=== PATIENT | male | born 1955 | race Caucasian/White ===

== ENCOUNTER 2016-08-07 14:33 | Inpatient (IN) | payer OTHER ==
[2016-08-07] VITALS (19 sets, daily range): BP systolic 109–250; BP diastolic 38–155
[~2016-08-07] VITALS: Ht 180.3 cm; Wt 89.0 kg
--- NOTE | ~2016-08-07 | P ---
[facility] [place] [address] [place] [address] PROCEDURE REPORT Name: CARLEYDEBORA Room #: 238-P ADM IN M.R.#: [id number] Admission: 08/07/16 Attend Phys: Xavi Stapleton MD Discharge: Date of : 53 Report #: [id number] THIS REPORT FOR: //name// CC: [facility] physician/PCP Xavi Stapleton HISTORY OF PRESENT ILLNESS: The patient is a 60-year-old male with diabetes, coronary artery disease, presenting with fatigue and found to be in complete heart block who had an episode of torsade de pointes secondary to prolonged QT and bradycardia with a long and short pause and an R-on-T phenomenon. His echo shows an EF of 50%. He is here for dual chamber pacemaker implantation. He has been cleared from an infection standpoint. Blood cultures are negative. ANESTHESIA: The patient was already intubated and was on general anesthesia for the procedure. Informed consent was obtained of his brother. We discussed the details of the procedure including the risks, which include but not limited to bleeding, infection, vascular damage, cardiac tamponade and pneumothorax. He understood these risks and was willing for us to implant the device. DESCRIPTION OF PROCEDURE: The patient was brought to the EP laboratory in a fasting and nonsedated state already intubated. He received IV vancomycin for antibiotic prophylaxis and was on additional antibiotics as well. Next, a venogram was performed showing patency of the left axillary vein. I injected 20 mL of lidocaine at the area below the clavicle. Incision was made. A pocket was created over the prepectoral fascia and access was obtained twice the left axillary vein with guidewires noted to be into the right atrium. Next, sheaths were positioned using the modified Seldinger technique and leads were positioned in the right ventricular apex and the right atrial appendage both with adequate pacing and sensing thresholds. The leads were sutured to the prepectoral fascia and then the device was connected. Tug test was performed. The device was placed in the pocket. The pocket was irrigated with vancomycin solution and then closed in 3 layers using 2-0 for the deep layer, 3-0 for the mid layer and 4-0 for the subcuticular layer. Surgical glue was placed at the incision site. Next, the temporary pacing wire was pulled from the right ventricle under fluoroscopy with no interference in with the pacemaker leads. Both the arterial and venous sheaths were also pulled. Hemostasis was obtained. The patient was transferred back to the ICU in stable condition. The implanted pacemaker was a [employer] model #PA7601, serial #[id number]. Atrial lead was a [employer] model #2088TC, 52 cm, serial #[id number], atrial lead 2.4 millivolts, pacing impedance of 448 ohms and the pacing threshold was 1.5 volts at 0.4 milliseconds. RV lead was a [employer] model #2088TC, 58 cm, serial #[id number] with an R-wave of 4.9 millivolts, pacing impedance of 700 ohms and a pacing threshold of 0.5 volts at 0.4 milliseconds. The device was programmed to the DDD 60-130 mode[address] [address] PROCEDURE REPORT Name: DEBORA HOWE Room #: 238-P [facility] IN M.R.#: [id number] Admission: 08/07/16 Attend Phys: Xavi Stapleton MD Discharge: Date of : 53 Report #: [id number] CONCLUSIONS: 1. Successful dual-chamber pacemaker implantation. 2. Satisfactory atrial and ventricular pacing and sensing thresholds. 3. Successful removal of the temporary pacing wire. <ELECTRONICALLY SIGNED> By: Fuad Johnson MD 08/16/16 0853 1401 2220 Fuad Johnson MD /nt
--- NOTE | ~2016-08-07 | HC ---
[facility] [place] [address] [place] [address] CONSULTATION Name: DEBORA HOWE Room #: 238-P [facility] IN M.R.#: [id number] Admission: 08/07/16 Attend Phys: Xavi Stapleton MD Discharge: Date of : 53 Report #: [id number] THIS REPORT FOR: //name// CC: [facility] physician/PCP Xavi Stapleton DATE OF SERVICE: 08/08/2016 REASON FOR CONSULTATION: Cholelithiasis. HISTORY OF PRESENT ILLNESS: This is a 60-year-old male patient, who was seen in the [place] [facility] with weakness and syncope. He had a temperature of 101. He has a known history of diabetes mellitus and is also known to be noncompliant. He has undergone a cardiac stent placement and was told several years ago that he would require coronary artery bypass graft. He has had difficulty with nausea, vomiting and diarrhea as well with an elevated temperature 101.5 degrees. In the Emergency Room, the patient was found to have a contracted gallbladder with gallstones. Radiology was unable to tell whether the gallbladder wall was thickened. The intra and extrahepatic biliary tree appeared otherwise normal. After the patient's admission, the patient was found to have a complete heart block, and he was admitted to the intensive care unit. The patient has been coded 2 to 3 times since his admission. PAST MEDICAL HISTORY AND PAST SURGICAL HISTORY: Significant for noncompliance with diabetes mellitus, hypertension, diabetic neuropathy, osteomyelitis, right foot wound, coronary artery stents. He has undergone tonsillectomy in the past. MEDICATIONS: Please see the electronic medical record for details. ALLERGIES: CIPROFLOXACIN causes hives. FAMILY HISTORY: Reviewed and noncontributory. SOCIAL HISTORY: The patient has a previous heavy alcohol use history. REVIEW OF SYSTEMS: As per history of present illness. Other review of systems is unobtainable, as the patient is now intubated and sedated. PHYSICAL EXAMINATION: VITAL SIGNS: Temperature 98.6, blood pressure 157/71, pulse 50, respirations 16. GENERAL: This is a 60-year-old male patient, who appears older than his stated age. He is intubated and sedated. HEENT: Atraumatic and normocephalic. NECK: Supple, no lymphadenopathy. Trachea is midline. CHEST: Clear bilaterally. [address] [address] CONSULTATION Name: DEBORA HOWE Room #: 238-P [facility] IN M.R.#: [id number] Admission: 08/07/16 Attend Phys: Xavi Stapleton MD Discharge: Date of : 53 Report #: [id number] CARDIOVASCULAR: Sinus bradycardia with evidence for complete heart block on the monitor. ABDOMEN: Soft and rotund. No wincing with exam. No palpable masses, no appreciable hernias, no surgical scars appreciated. GENITOURINARY: Normal external male genitalia. EXTREMITIES: No clubbing or cyanosis. NEUROLOGIC: Unable to assess. PSYCHIATRIC: Unable to assess. SKIN AND INTEGUMENTARY: Warm and dry. LABORATORY DATA: CBC shows a white blood cell count 5.4, hemoglobin 14.4, hematocrit 41.7, platelets 96. Electrolytes show sodium 135, potassium 4.6, chloride 101, CO2 of 25, BUN 19, creatinine 1.1, glucose was 249, total bilirubin is elevated at 2.0, ALT 21, AST 18, alkaline phosphatase 287. RADIOLOGIC STUDIES: CT of the abdomen and pelvis findings are as noted above. Abdominal ultrasound showed an echogenic contracted gallbladder with multiple gallstones and changes consistent with probable cholecystitis. There was no pericholecystic fluid seen. The gallbladder wall was quite difficult to visualize as the gallbladder appeared to b contracted. The extrahepatic common bile duct was mildly prominent 5 mm in diameter. Chest x-ray showed increasing vascular congestion. IMPRESSION AND PLAN: This is a 60-year-old noncompliance male patient with diabetes, and coronary artery disease, who has complete heart block and he was admitted to the intensive care unit. He has been coded multiple times. He may have acute cholecystitis. It is difficult to tell at this point; however, intervention is not warranted unless he is felt to develop and sepsis from this, in which case interventional radiology will be consulted for consideration for cholecystostomy placement. I will follow along with serial abdominal exams as well as labs and x-rays as necessary. The patient's total bilirubin is mildly elevated and if it rises, he may need a PIPIDA scan to rule out biliary obstruction. His biggest issue is his untreated cardiac disease. I sincerely appreciate the opportunity to participate in the care of this patient and will leave further recommendations and orders in the electronic medical record as appropriate. <ELECTRONICALLY SIGNED> By: Antonio Olson MD, FACS 08/09/16 1200 1611 0040 Antonio Olson MD, FACS /nt
--- NOTE | ~2016-08-07 | P ---
[facility] [place] [address] [place] [address] PROCEDURE REPORT Name: DEBORA HOWE Room #: 203-P [facility] IN M.R.#: [id number] Admission: 08/07/16 Attend Phys: Xavi Stapleton MD Discharge: Date of : 53 Report #: [id number] THIS REPORT FOR: //name// CC: [facility] physician/PCP Xavi Stapleton DATE OF SERVICE: 08/30/2016 SURGEON: Antonio Olson M.D. PREOPERATIVE DIAGNOSES: 1. Dysphagia with aspiration. 2. Protein-calorie malnutrition. 3. History of alcoholism. 4. Third degree heart block, status post pacemaker placement. 5. Diabetes mellitus. 6. Medical noncompliance. POSTOPERATIVE DIAGNOSES: 1. Dysphagia with aspiration. 2. Protein-calorie malnutrition. 3. History of alcoholism. 4. Third degree heart block, status post pacemaker placement. 5. Diabetes mellitus. 6. Medical noncompliance. PROCEDURE: EGD with 20-Tongan pull-type. ANESTHESIA: Monitored anesthetic care and local anesthetic. ESTIMATED BLOOD LOSS: 5 mL. SPECIMEN: None. COMPLICATIONS: None appreciated. INDICATIONS FOR PROCEDURE: This is a 60-year-old noncompliant male patient, with a history of diabetes mellitus, and coronary artery disease with complete heart block. He was admitted and coded multiple times and then intubated. He was extubated and then reintubated, and has been since extubated. He appears to be encephalopathic and is slow to advance regarding his swallowing function. He has had dysphagia with aspiration. He presents now for an EGD with PEG placement. DESCRIPTION OF PROCEDURE IN DETAIL: After the benefits and risks of the procedure were explained to the patient and his durable power of personal injury attorney, which [facility] [address] [place] [address] PROCEDURE REPORT Name: DEBORA HOWE Room #: 203-P [facility] IN M.R.#: [id number] Admission: 08/07/16 Attend Phys: Xavi Stapleton MD Discharge: Date of : 53 Report #: [id number] include but are not limited to risks of bleeding, infection, postoperative pain, postoperative expectations, an informed consent was obtained. The patient was identified in the preoperative holding area. He was given IV antibiotics as documented in the chart in line with the SCIP protocol. The patient was then taken to the procedure room, and he was placed in the supine position. Bite block was placed. A time-out was performed to identify the correct patient and procedure. The patient was then given monitored IV sedation. When adequately sedated, the gastroscope was then inserted into the patient's oropharynx and passed down the esophagus into the stomach and beyond the pylorus to the second portion of the duodenum. The scope was then slowly withdrawn. The scope was withdrawn into the antrum, the scope was retroflexed in retrograde view of the cardia was seen. The scope was then straightened and slightly withdrawn. The room lights were dimmed, and the stomach was transilluminated. An appropriate area was chosen for placement of the tube to the left of midline in the upper abdomen. There was good ballotability, seen with the endoscope. The skin was then prepped and draped in the standard sterile fashion. Local anesthetic was infiltrated into the skin and subcutaneous tissue. A small transverse incision was made. A Cook needle with catheter was then advanced directly into the stomach, and the needle was withdrawn. A looped guidewire was then advanced through the catheter. The guidewire was snared with the scope. The guidewire was then withdrawn through the patient's esophagus and oropharynx. The pull-type 20-Tongan PEG tube was then attached to the guidewire coming out of the patient's mouth. The guidewire was used to advance the PEG tube, as it was pulled with some traction from the abdominal side. The PEG tube was brought through the opening and marked at 2.5 cm at the skin level. The outer flange was placed. The tube was then cut to size. A clamp and fitting were then placed. The gastroscope was reinserted into the patient's oropharynx and passed down the esophagus and into the stomach where the inner flange was seen against the anterior body of the stomach, located distally. The tube did not appear to be under undue pressure. The stomach was then decompressed, and the scope was slowly withdrawn. The patient tolerated the procedure well. He was awakened and taken to the recovery room in stable condition with no apparent complications. The patient's tube will be kept to dependent drainage for 24 hours. He will then be resumed on his tube feeds starting at a slow rate and slowly advancing to his goal rate as tolerated. <ELECTRONICALLY SIGNED> By: Antonio Olson MD, FACS 08/30/16 2156 1614 1723 Antonio Olson MD, FACS /nt
--- NOTE | ~2016-08-07 | EEG ---
[facility] [place] [place] [address] ELECTROENCEPHALOGRAM Name: CARLEYDEBORA Room #: 203-P ADM IN M.R.#: [id number] Admission: 08/07/16 Attend Phys: Xavi Stapleton MD Discharge: Date of : 53 Report #: [id number] THIS REPORT FOR: //name// CC: [facility] physician/PCP Xavi Stapleton DATE OF SERVICE: 08/25/2016 This patient is being evaluated for the possibility of encephalopathy. EEG was done by placing the electrodes by standard 10-20 system of electrode placement. Both referential and sequential montages were used for recording. Background activity does go up to about 8-9 Hz and 40 microvolt, but it is intermixed with theta range slowing on both sides. The patient appeared to be asleep during part of this EEG, that is associated with bilateral slowing and vertex sharp waves. Photic stimulation is unremarkable. IMPRESSION: Moderately abnormal EEG because it is disorganized and poorly formed. It is intermixed with theta range slowing. That finding can occur with encephalopathy, effect of psychotropic medication, dementia, etc. Clinical correlation is recommended. Thank you very much for this referral. <ELECTRONICALLY SIGNED> By: Garrett Rios MD 08/28/161941 170 51 Garrett Rios MD /nt
--- NOTE | ~2016-08-07 | HC ---
[facility] [place] [address] [place] [address] CONSULTATION Name: CARLEYDEBORA Room #: 238-P [facility] IN M.R.#: [id number] Admission: 08/07/16 Attend Phys: Xavi Stapleton MD Discharge: Date of : 53 Report #: [id number] THIS REPORT FOR: //name// CC: [facility] physician/PCP Xavi Stapleton PRIMARY CARE PHYSICIAN: Unknown. REFERRING PHYSICIAN: Xavi Stapleton M.D. REASON FOR REFERRAL: Acute respiratory failure following a cardiac arrest. HISTORY OF PRESENT ILLNESS: The patient is a 60-year-old white male who presented to Emergency Room with nausea, vomiting, diarrhea and febrile illness. The patient was admitted for complete heart block, cholecystitis and possible pneumonia. Overnight, the patient became unresponsive, telemetry showed ventricular fibrillation. The patient was subsequently intubated. A pulmonary consultation was requested. The patient has been seen by Cardiology regarding complete heart block. The patient was felt to be hemodynamically stable. Following Emergency Room evaluation, the patient was admitted to the ICU. At around 09:00 p.m., the patient became unresponsive. The patient was found to be in ventricular fibrillation. He was defibrillated once with spontaneous return of circulation and pulse. The patient was found to be in wide complex tachycardia on the monitor. He was subsequently given amiodarone. The patient was not able to follow commands. He was minimally responsive. The patient was subsequently intubated. A 7.5 mm ET tube was utilized. Currently, he is stable, sedated, he is on dopamine. Pulse remains around the 40s. Hemodynamically stable. PAST MEDICAL HISTORY: Notable for diabetes mellitus type 2; hypertension; coronary artery disease, undergone prior stent placement in the past, he is followed by Dr. 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 PAST SURGICAL HISTORY: Status post tonsillectomy. ALLERGIES: To FLUOROQUINOLONE which causes severe hives. HOME MEDICATIONS: Include insulin supplements, Zocor, Januvia, aspirin, Plavix, antiacid, multivitamins, Senokot, Diflucan, Zestril, Colace and fish oil. FAMILY HISTORY: Unknown. [address] [address] CONSULTATION Name: DEBORA HOWE Room #: 238-P [facility] IN ..#: [id number] Admission: 08/07/16 Attend Phys: Xavi Stapleton MD Discharge: Date of : 53 Report #: [id number] SOCIAL HISTORY: The patient apparently lives alone. He has family members out of state. According to the family members, the patient could not afford insurance last couple of years due to Affordable Care Act. As a result, his diabetes has been in under poor control, resulting in chronic wounds involving his lower extremities. There is no history of tobacco or alcohol use. REVIEW OF SYSTEMS: Deferred as the patient is intubated. PHYSICAL EXAMINATION: GENERAL: He is sedated. VITAL SIGNS: Temperature is 99.5 degrees Fahrenheit, pulse is 48, respiratory rate is 24, blood pressure 169/54 mmHg and saturations 100%. HEENT: Normocephalic and atraumatic. NECK: Supple, without lymphadenopathy or thyromegaly. CHEST: Breath sounds are good. Mild coarse breath sounds bilaterally. No wheezes. CARDIOVASCULAR: Normal S1 and S2. There are no murmurs or gallop. There is no JVD. There is no carotid bruit. Pulses are 2+/4+ bilaterally. ABDOMEN: Soft and nontender. No organomegaly or masses felt. GENITOURINARY: Deferred. RECTAL: Deferred. EXTREMITIES: Noted for no cyanosis or clubbing but remarkable stasis dermatitis changes involving the lower extremities. DIAGNOSTIC DATA: Portable chest x-ray post-intubation shows ET tube in the appropriate position, nasogastric tube is also in appropriate position. Mild vascular congestion is noted bilaterally. No consolidation on bronchogram noted. CT abdomen and pelvis shows the presence of gall stones; otherwise, no acute findings. Arterial ultrasound of the lower extremities was unremarkable. LABORATORY DATA: Lipase was normal. Sodium 137, potassium 4.5, chloride 103, CO2 is 23, BUN is 25 and creatinine is 1.6, earlier it was 1.1. Glucose was 222. Liver function test is grossly unremarkable. WBC 10,500 without bandemia. Platelets are mildly low at 96,000 and albumin 3.5. Arterial blood gas following intubation revealed pH 7.4, pCO2 of 33 and pO2 of 299 on FiO2 of 60%. IMPRESSION: 1. Acute hypoxic respiratory failure in this 60-year-old white male with witnessed cardiac arrest. 2. Witnessed cardiac arrest with ventricular fibrillation, status post cardioversion. 3. Complete heart block. Heart rate in the low 50s to 40s. 4. Coronary artery disease with prior stent placement. [facility] [address] [place] [address] CONSULTATION Name: DEBORA HOWE Room #: 238-P ADM IN [place]#: [id number] Admission: 08/07/16 Attend Phys: Xavi Stapleton MD Discharge: Date of : 53 Report #: [id number] 5. Diabetes mellitus type 2. 6. Hypertension. 7. Chronic wounds involving his right foot due to presumed peripheral vascular disease related to his diabetes mellitus. The patient is suspected to have severe peripheral vascular disease. 8. Cholelithiasis, possible cholecystitis. Surgery has been consulted. 9. Chest x-ray suggests atelectasis, vascular congestion, but no obvious consolidation on air bronchogram. Possible pneumonia. RECOMMENDATIONS: We will continue mechanical ventilation, wean when medically stable. Broad-spectrum antibiotics to treat for presumed cholecystitis. My suspicions for pneumonia are low, but we will obtain sputum for Gram stain and culture sensitivity. The patient has been seen by Cardiology because of his complete heart block, cardiac arrest. DVT and GI prophylaxis will be addressed. Thank you for the consultation. <ELECTRONICALLY SIGNED> By: Malachi Glover MD 08/11/16 1351 1137 2311 Malachi Glover MD /nt
--- NOTE | ~2016-08-07 | HC ---
[facility] [place] [address] CONSULTATION Name: DEBORA HOWE Room #: 238-P ADM IN .R.#: [id number] Admission: 08/07/16 Attend Phys: Xavi Stapleton MD Discharge: Date of : 54 Report #: [id number] THIS REPORT FOR: //name// CC: DHARMESH physician/PCP Xavi Stapleton DATE OF SERVICE: 08/10/2016 REASON FOR CONSULTATION: Acute kidney injury. HISTORY OF PRESENT ILLNESS: This is a 60-year-old male who presented 3 days ago through the Emergency Room. He came in feeling weak. He had been having nausea, vomiting, diarrhea and a fever to 101.5. Multiple things have happened since that time. He was noted to be in third-degree heart block. At that time, he had a BUN of 19 and a creatinine of 1.1. He did have a white count of 5.1. He is a longstanding diabetic, he degraded into a worsening heart rhythm with V-fib. He underwent defibrillation, he received some additional medications. He remains in the ICU. He had a temporary pacemaker placed. He has also had more problems with a right foot wound, which has been infected. He has been started on broad spectrum antibiotics. He is growing up multiple organisms from that right foot wound. During all this time; again, he had a creatinine of 1.1 on admission, but the following day it was up to 1.6, then 2.0 yesterday and 2.2 today. We are asked to see him today. Potassium now is 4.1, bicarbonate 19. He had a urinalysis from admission showing specific gravity of 1.015, pH of 5.5, 1+ protein, 3+ blood with 11-20 red cells. I had also noted the patient had a CT scan of the abdomen on admission. It showed normal appearing kidneys. No evidence of obstruction or hydronephrosis. PAST MEDICAL HISTORY: Longstanding diabetes mellitus. Review of his admission notes indicates that the patient has been generally noncompliant with medications. He has not taken much in meds for his diabetes for 10 years. It is quite obvious in looking at him he had not taken care of much of anything over that period of time. MEDICATIONS: At this time includes some half normal saline. He is on vancomycin as well as Zosyn for his foot infection. He has gotten some heparin. He is on some insulin. Otherwise, p.r.n. medications. He is also on some pantoprazole. ALLERGIES: Listed to CIPRO. FAMILY HISTORY: Unavailable. SOCIAL HISTORY: The patient lives in an address in [place], [place]. He is . [facility] [address] [place] [address] CONSULTATION Name: CARLEYDEBORA Room #: 238-P [facility] [place] M.R.#: [id number] Admission: 08/07/16 Attend Phys: Xavi Stapleton MD Discharge: Date of : 54 Report #: [id number] REVIEW OF SYSTEMS: Unavailable from the patient. In talking to the ICU nurse, they had attempted to do some ventilator weaning, but he became very unstable from a heart rate and heart rhythm standpoint once that started. He remains on the vent currently. He has been moving extremities. PHYSICAL EXAMINATION: GENERAL: Chronically ill-appearing male seen in the Intensive Care Unit. VITAL SIGNS: Most recent blood pressure 114/52; heart rate is 59, it was a sinus ham, not currently paced; temperature 35.6. HEENT: Shows pupils are 3 mm and reactive. Sclerae are nonicteric. He is orally intubated. NECK: Supple. No JVD. CHEST: Shows coarse breath sounds bilaterally. HEART: Has a regular bradycardia. ABDOMEN: He has a few bowel sounds present; it is soft and nontender at this time. I cannot palpate organomegaly or masses. EXTREMITIES: Show a wrapped right foot. This was recently re-wrapped. I did not unwrap it to look at the right foot ulcer. Left foot shows diminished pedal pulses. LABORATORY DATA: Sodium 141, potassium 4.1, chloride 109, bicarbonate 19, BUN 27, creatinine 2.2, calcium 8.1. Total protein 5.4, albumin 1.8. AST 23, ALT 27. White count 3.6, hemoglobin 11.9, hematocrit 35.0 and platelets 45,000. ASSESSMENT: 1. A 60-year-old male, 3 days post ventricular fibrillation arrest. Hemodynamically, he still has is heart block, he has temporary pacer in place. They are awaiting eventual clearance from an infection standpoint to place a permanent pacemaker. He was on some pressors but is off those at this time. He is getting some IV fluids. Hemodynamically, still somewhat unstable. 2. Acute kidney injury. He has gone from basically a normal creatinine level to his current creatinine over 3 days. He had two events on arrival that could have been contributing. He certainly has underlying diabetes and he did have mild proteinuria. He had a ventricular fibrillation arrest and so had instability related to that. In addition, he received IV contrast for an admission CT scan. Hence, he could have some contrast nephrotoxicity. Nevertheless, he is making urine at this point. Rise of creatinine is slow. Electrolytes are acceptable. I expect this will turnaround. Again, he was unobstructed on his admission CT. Someone had ordered an renal ultrasound but that is not needed at this point as they had the CT just three days ago. At this point, he needs some continued IV fluids. At some time, I expect his renal function will improve. 3. Third-degree heart block, awaiting permanent pacemaker. 4. Respiratory failure on the vent with poor weaning earlier today. 5. Longstanding diabetes with poor management/control. [facility] [address] [place] [address] CONSULTATION Name: DEBORA HOWE Room #: 238-P [facility] [place] .R.#: [id number] Admission: 08/07/16 Attend Phys: Xavi Stapleton MD Discharge: Date of : 54 Report #: [id number] 6. Diabetic foot wound, on 2 different antibiotics. PLAN: 1. Continue current IV fluids. 2. We will cancel the renal ultrasound. 3. Repeat labs in the morning. 4. Check fractional excretion of sodium as that would make a difference if that is still low. 5. We will follow along the care of this patient. <ELECTRONICALLY SIGNED> By: Herberth Dudley MD 08/11/16 1932 1136 36 Herberth Dudley MD /nt
--- NOTE | ~2016-08-07 | HC ---
[facility] [place] [address] CONSULTATION Name: CARLEYDEBORA Room #: 238-P [facility] IN M.R.#: [id number] Admission: 08/07/16 Attend Phys: Xavi Stapleton MD Discharge: Date of : 54 Report #: [id number] THIS REPORT FOR: //name// CC: DHARMESH physician/PCP Xavi Stapleton REASON FOR CONSULTATION: Heart block. HISTORY OF PRESENT ILLNESS: The patient is a 60-year-old with known coronary artery disease status post multiple stents as well as diabetes, peripheral vascular disease who has been experiencing increasing fatigue, nausea, vomiting, was brought to the emergency room. The patient denies any problems with any chest pain or chest tightness. 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 He denies any PND or orthopnea. He denies presyncope or syncope. PAST MEDICAL HISTORY: 1. CAD. 2. Diabetes. 3. Hypertension. 4. Right foot wound in the past with MRSA. The wound VAC was placed there before prior PICC line. SOCIAL HISTORY: He does not smoke. FAMILY HISTORY: Noncontributory. ALLERGIES: CIPRO. MEDICATIONS: Reviewed and include aspirin, Plavix, and lisinopril. Not on any AV alden blocking agents. PHYSICAL EXAMINATION: VITAL SIGNS: Temperature is 38.6, pulse 45, respirations 14, blood pressure 160/40, sats are 96%. GENERAL: He is in no acute distress. He is disheveled and smells like urine. HEENT: Oropharynx is clear. NECK: Supple, with no thyromegaly. HEART: Bradycardic, but regular. There are no murmurs, rubs, or gallops. LUNGS: Clear to auscultation bilaterally. ABDOMEN: Soft, nontender, nondistended, no hepatosplenomegaly. EXTREMITIES: There is no clubbing or cyanosis. There is some edema in the lower extremities and some chronic venous changes. LABORATORY DATA: His white count is 5.4. His hemoglobin is 14.4, his platelets are 96. His sodium is 135, potassium is 4.6, BUN 19, creatinine 1.8, lactate 1.9. Total bilirubin, direct bilirubin slightly elevated. CT scan of the abdomen shows possible gallbladder issues, but otherwise nothing remarkable. [address] [address] CONSULTATION Name: DEBORA HOWE Room #: 238-P [facility] IN .R.#: [id number] Admission: 08/07/16 Attend Phys: Xavi Stapleton MD Discharge: Date of : 54 Report #: [id number] His EKG 12-lead showed heart block. Telemetry, currently he shows 2:1 heart block. He has a left bundle branch block. ASSESSMENT: In summary, the patient is a 60-year-old with known coronary artery disease, diabetes, presents with fatigue, found to be febrile and in complete heart block. He is hemodynamically stable. Recommend watching in the ICU or the CCU, either will be okay. Recommend that he be evaluated by the Infectious Disease Service before I can put a pacemaker in the patient. We will need an echo on Tuesday. We will follow. <ELECTRONICALLY SIGNED> By: Fuad Johnson MD 08/16/16 0855 1718 0115 Fuad Johnson MD /nt
--- NOTE | ~2016-08-07 | EKG ---
[address] [employer] [place] [address] ELECTROCARDIOGRAM REPORT Name: DEBORA HOWE Room #: 238-P ADM IN M.R.#: [id number] Admission: 08/07/16 Attend Phys: Xavi Stapleton MD Discharge: Date of : 54 Report #: [id number] THIS REPORT FOR: //name// [facility] Test Date: 2016-08-14 Test Time: 22:02:19 Pat Name: DEBORA HOWE Department: Room: 238 P Gender: M Junction Maker: jreif : 1955 Requested By: Xavi Stapleton Order Number: [id number] MD: Fuad Johnson Measurements Intervals [place] Rate: 88 P: 64 [place]: 198 QRS: -44 QRSD: 188 T: 112 QT: 465 QTc: 563 Interpretive Statements Sinus rhythm Left bundle branch block Compared to ECG 08/14/2016 07:20:01 Left bundle-branch block now present Ventricular-paced complex(es) or rhythm no longer present Atrial-sensed ventricular-paced complex(es) or rhythm no longer present Electronically Signed On 08-16-2016 14:30:46 CDT by Fuad Johnson [email or web address] <ELECTRONICALLY SIGNED> By: Fuad Johnson MD 08/16/16 1430 01 01 Fuad Johnson MD /EPI
--- NOTE | ~2016-08-07 | HC ---
[facility] [place] [address] CONSULTATION Name: CARLEYDEBORA Room #: 203-P [facility] IN M.R.#: [id number] Admission: 08/07/16 Attend Phys: Xavi Stapleton MD Discharge: 09/03/16 Date of : 54 Report #: [id number] THIS REPORT FOR: //name// CC: DHARMESH physician/PCP Xavi Stapleton DATE OF SERVICE: 08/25/2016 DATE OF SERVICE: 08/25/2016 HISTORY OF PRESENT ILLNESS: The patient is a 60-year-old white male originally admitted with weakness and fever. He was noted to have non-ST elevation myocardial infarction, coronary artery disease, had a cardiac arrest with complete heart block and underwent pacemaker placement. His course has been complicated by acute renal insufficiency. He has had toxic metabolic encephalopathy. He had tijww-gm-sjswcak respiratory failure. He also was cholecystitis. He is on Zosyn with no surgery recommended at this time. He is noted to have profound weakness with question regarding critical illness myopathy. Nutrition has been an issue and is currently n.p.o. with Dobhoff feedings tube. We are seeing him in rehabilitation medicine consultation. PAST MEDICAL HISTORY: Includes diabetes mellitus, noncompliant with medications and had not taken his diabetic medications since 2007. History of hypertension and has had 7 stents placed. MEDICATIONS: Please see the full medication listing. SOCIAL HISTORY: Lives alone in an apartment, does some security work, was premorbidly independent without gait aids. There is a brother, who visited from [place], but apparently has not been closely involved with the patient over the last four years or so. The patient apparently was living "hand to mouth." There was a mother that is involved some, although she apparently has some dementia and lives in an assisted living facility in [place]. REVIEW OF SYSTEMS: Limited with his somnolence. PHYSICAL EXAMINATION: GENERAL: A 60-year-old white male, appeared quite somnolent. He will open his eyes for me, but I could not get him to verbalize. He has the Dobhoff feeding tube in place. He is overweight. He appears to have significant weakness of both upper and lower extremities, although again it was difficult for me to actually get him to become alert enough to even try to test for volitional strength. Tone appeared to be overall decreased both upper and lower extremities. Functionally, he has been maximum assistance for basic bed mobility. [address] [address] CONSULTATION Name: DEBORA HOWE Room #: 203-P [facility] IN .R.#: [id number] Admission: 08/07/16 Attend Phys: Xavi Stapleton MD Discharge: 09/03/16 Date of : 53 Report #: [id number] ASSESSMENT: A 60-year-old white male with the following problem list: 1. Toxic metabolic encephalopathy. 2. Apparent critical illness myopathy. Appears to have profound weakness of both upper and lower extremities, although it is difficult for me to assess volitionally, as he is quite somnolent this morning. 3. Severe dysphagia n.p.o. with Dobhoff. 4. Non-ST elevation myocardial infarction with cardiac arrest and complete heart block status post pacemaker. 5. Acute renal insufficiency. 6. Acute respiratory failure, extubated on 08/22/2016. 7. Peripheral vascular disease. 8. Thrombocytopenia. 9. Diabetes mellitus with foot infection, on Zosyn, prior history of noncompliance. 10. Cholecystitis. No plans for intervention at this time. PLAN: The patient does not meet criteria for an acute [address] [place] [address] inpatient rehabilitation stay. He is very low level. Would consider long-term acute care options at this point. ADDENDUM: Note that the patient has been coded multiple times. He certainly may have a component of hypoxic encephalopathy along with toxic metabolic encephalopathy. <ELECTRONICALLY SIGNED> By: Jack Albrecht MD 09/07/16 1518 1039 1328 Jack Albrecht MD /nt
--- NOTE | ~2016-08-07 | EKG ---
[place] [address] [facility] [address] ELECTROCARDIOGRAM REPORT Name: CARLEYDEBORA Room #: 238-P ADM IN M.R.#: [id number] Admission: 08/07/16 Attend Phys: Xavi Stapleton MD Discharge: Date of : 54 Report #: [id number] THIS REPORT FOR: //name// [facility] Test Date: 2016-08-14 Test Time: 07:20:01 Pat Name: DEBORA HOWE Department: Room: 238 P Gender: M Incising Machine Operator: NAYLA : 1955 Requested By: Fuad Johnson Order Number: [id number] MD: Brandon Martinez Measurements Intervals [place] Rate: 72 P: 41 SD: 212 QRS: -48 QRSD: 182 T: 122 QT: 500 QTc: 548 Interpretive Statements Atrial-sensed ventricular-paced rhythm No further analysis attempted due to paced rhythm Baseline wander in lead(s) I,II Compared to ECG 08/07/2016 21:15:26 ventricular pacing has replaced complete heart block Electronically Signed On 08-15-2016 11:38:06 CDT by Brandon Martinez [email or web address] <ELECTRONICALLY SIGNED> By: Brandon Martinez MD, [facility] 08/15/16 1138 0720 Brandon Martinez MD, [facility] /EPI
--- NOTE | ~2016-08-07 | EKG ---
[address] [address] ELECTROCARDIOGRAM REPORT Name: CARLEYDEBORA Room #: 238-P ADM IN M.R.#: [id number] Admission: 08/07/16 Attend Phys: Xavi Stapleton MD Discharge: Date of : 53 Report #: [id number] THIS REPORT FOR: //name// [facility] Test Date: 2016-08-07 Test Time: 14:47:28 Pat Name: DEBORA HOWE Department: Room: 238 P Gender: M Mine Car Dispatcher: Dmitry MEDRANO : 1955 Requested By: Mary Jane Land Order Number: [id number] MD: Fuad Johnson Measurements Intervals [place] Rate: 47 P: 0 ID: QRS: -3 QRSD: 155 T: 122 QT: 621 QTc: 550 Interpretive Statements Complete AV block with wide QRS complex Left bundle branch block No previous ECG available for comparison Electronically Signed On 08-08-2016 20:04:06 CDT by Fuad Johnson [email or web address] <ELECTRONICALLY SIGNED> By: Fuad Johnson MD 08/08/162003 1447 144 Fuad Johnson MD /MARK
--- NOTE | ~2016-08-07 | HC ---
[facility] [place] [address] CONSULTATION Name: CARLEYDEBORA Room #: 238-P [facility] IN .R.#: [id number] Admission: 08/07/16 Attend Phys: Xavi Stapleton MD Discharge: Date of : 53 Report #: [id number] THIS REPORT FOR: //name// CC: DHARMESH physician/PCP Xavi Stapleton DATE OF SERVICE: 08/11/2016 WOUND CARE CONSULTATION PERSONAL PHYSICIAN: Dr. Stapleton. CHIEF COMPLAINT: Right diabetic foot ulcer. HISTORY OF PRESENT ILLNESS: This is a 60-year-old white male who is currently intubated and sedated in the ICU status post complete heart block followed by cardiac arrest with ventricular fibrillation and resuscitation. On admission, the patient was found to have an ulceration on his right plantar foot of unknown etiology or time frame. The patient once again is intubated and sedated and is unable to give any history. Family members are at the bedside. They state that they are not very close to this patient and did not know anything about any ulcerations on his foot and admit to the fact that the patient is a very private person and has fairly poor self hygiene. I have been asked to assist in the care of the plantar foot ulcer at this time. It is unclear whether the patient has ever had any other ulcerations in the past. PAST MEDICAL HISTORY: Significant for insulin-dependent diabetes which, according to the staff and family members, the patient has not been on any medicines for over 10 years. History of coronary artery disease with multiple cardiac stents placed in the past. History of diabetic neuropathy. CURRENT MEDICATIONS: Multiple. I reviewed the patient's medication list. DRUG ALLERGIES: CIPRO. SOCIAL HISTORY: The patient supposedly lived independently and alone up until the recent hospital visit. FAMILY HISTORY: Unobtainable because the patient is intubated and sedated. REVIEW OF SYSTEMS: Unobtainable because the patient is intubated and sedated. PHYSICAL EXAMINATION: VITAL SIGNS: Stable. The patient is afebrile. GENERAL: This is an intubated and sedated white male who is in no obvious distress. [facility] [address] [place] [address] CONSULTATION Name: DEBORA HOWE Room #: 238-P [facility] IN M.R.#: [id number] Admission: 08/07/16 Attend Phys: Xavi Stapleton MD Discharge: Date of : 53 Report #: [id number] HEENT: Normocephalic, atraumatic. Mucous membranes are dry. Oral endotracheal tube is in place. Eyes are closed. NECK: Shows no obvious JVD, otherwise supple. LUNGS: Clear. HEART: Regular. ABDOMEN: Soft, nontender. EXTREMITIES: The patient will move all extremities spontaneously. There is a trace to 1+ edema in bilateral lower extremities. There is significant hyperkeratosis on the right lower extremity and foot and some on the left. On the right plantar foot, over the first metatarsal head, is an open ulceration with purulent drainage that probes to bone. The drainage itself is foul smelling. It does not appear to be tender. However, once again, the patient is a sedated. The undermining is approximately 1 cm circumferentially. Please see the wound care nurses' notes for actual dimensions. The rest of the foot is not necessarily swollen or red. Evaluation of bilateral heels are intact. Left foot has no associated open ulcerations. LABORATORY DATA: White count 3.8, hemoglobin 11.2 and platelet count is markedly low at 46,000. Albumin also low at 1.8. C-reactive protein was elevated at 32.3. Plain film x-ray of the right foot shows no obvious signs of osteomyelitis. WOUND CARE COURSE: I spoke with the family at the bedside and stated that in the next few days I would like to do a debridement of the foot. However, given his platelet count being so low, I would prefer to hold off at this time, given the risk of bleeding. At this time, we will go ahead and start packing the ulceration of the plantar foot with Aquacel AG daily. IMPRESSION: 1. Chronic ulceration, right first metatarsal head plantar aspect, with fat layer exposed and concerns for underlying osteomyelitis. 2. Diabetes mellitus, poorly controlled. 3. Protein-calorie malnutrition - severe with albumin at 1.8. 4. Coronary artery disease, status post cardiac arrest with resuscitation. 5. Respiratory failure, status post cardiac arrest, currently on a ventilator. 6. Generalized debility. PLAN: Listed as above, with the Aquacel AG packing. I have also spoken to the family about performing an MRI of the foot at some point in time at this hospital once the patient is more stable. We will continue to follow. [address] [address] CONSULTATION Name: DEBORA HOWE Room #: 238-P ADM IN M.R.#: [id number] Admission: 08/07/16 Attend Phys: Xavi Stapleton MD Discharge: Date of : 53 Report #: [id number] I appreciate the ability to consult this patient. <ELECTRONICALLY SIGNED> By: Jalil Her MD 08/16/16 1022 0912 1135 Jalil Her MD /nt
--- NOTE | ~2016-08-07 | S ---
[facility] [place] [address] SURGICAL PATH RPT PROCEDURE Name: DEBORA HOWE Room #: 238-P ADM IN M.R.#: [id number] Admission: 08/07/16 Date of : 53 Discharge: Report #: [id number] Path Case #: [id number] PATHOLOGY REPORT COLLECTION DATE: 08/10/2016 RECEIVED DATE: 08/11/2016 SUBMITTING PHYS: Dr. Dulce Maria Weems OTHER PHYS: Dr. Mary Jane Hurley SPECIMEN(S) RECEIVED: A.Peripheral smear * * * * * * * * * * * * FINAL DIAGNOSIS: Peripheral blood smear: - Pancytopenia including mild leukopenia / lymphopenia, mild normocytic anemia, and moderate to severe thrombocytopenia. (see comment) COMMENT: Overall, the peripheral blood has pancytopenia including mild leukopenia / lymphopenia, mild normocytic anemia, and moderate to severe thrombocytopenia. The etiology of the findings is unclear based entirely on slide review. Potential causes of pancytopenia include infections, drug reactions, and primary bone marrow disorders. Potential causes of normocytic anemia include anemia of chronic disease, treated and/or compensated vitamin and mineral deficiencies, acute blood loss, and dilutional. Potential causes of thrombocytopenia include immune and non-immune platelet destruction, drug and/or toxic exposures, infections, dilutional, and primary bone marrow disorders. Correlation with clinical history and additional laboratory data is recommended. (CLW:mgr; d/t: 08/11/16) PATHOLOGIST: Roxann Pena M.D. REPORT ELECTRONICALLY SIGNED BY: Roxann Pena M.D. DATE/TIME: 08/11/2016 22:00 * * * * * * * * * * * * [address] [address] SURGICAL PATH RPT PROCEDURE Name: DEBORA HOWE Room #: 238-P [facility] IN [facility]#: [id number] Admission: 08/07/16 Date of : 53 Discharge: Report #: [id number] Path Case #: [id number] MICROSCOPIC DESCRIPTION: CBC Data (08/10/16): WBC 3,600 /uL, RBC 3.98, hemoglobin 11.9 g/dL, hematocrit 35.0%, MCV 88.0 fL, MCH 29.9 pg, MCHC 34.0 g/dL, RDW 14.4%, and platelet count 45,000 /uL. Automated white blood cell differential: 69.6% segs, 15.1% lymphs, 11.9% monos, 2.5% eos, and 0.9% basos. Peripheral Blood Smear: Cytomorphological examination of the Mancilla's stained peripheral blood smear confirms the provided data. Red blood cells show mild normocytic anemia with no significant anisopoikilocytosis. White blood cells are mildly decreased in number. They are predominantly segmented neutrophils and are without significant dyspoiesis or significant left shift. There is a mild lymphopenia. The lymphocytes are predominantly small, round, and mature appearing with condensed chromatin and scant cytoplasm with admixed large granular lymphocytes. On scanning, no markedly atypical lymphoid cells are seen. Monocytes are mature. Platelets are moderate to markedly decreased in number and mainly normal in morphology with rare larger platelets noted. CLINICAL HISTORY: 60 year-old man with pancytopenia. Morphologic review of the peripheral blood smear is requested by the patient's physician. INITIAL CPT CODE(S): A; [place] Professional services performed by [employer] at [facility] [address], [place] [address] Technical services performed by [employer] at [address] [place] [address], [address], [place] [address]. [facility] [address] [place] [address] PHONE: [phone] DIRECTOR: Andrae Danielle M.D. * * * END OF REPORT * * *
--- NOTE | ~2016-08-07 | CATHLAB ---
[facility] [place] [address] INVASIVE PROCEDURE REPORT Name: DEBORA HOWE Room #: 238-P ADM IN M.R.#: [id number] Admission: 08/07/16 Attend Phys: Saba Orozco Discharge: Date of : 53 Date of Service: 08/09/16 0849 Report #: [id number] THIS REPORT FOR: //name// CC: DHARMESH physician/PCP Xavi Stapleton PROCEDURES: Left ventriculography, coronary angiography, selective renal angiography and temporary pacemaker placement. DESCRIPTION OF PROCEDURE: The patient brought to the catheterization lab on a ventilator and not responsive and sedated on propofol drip. Right groin prepped and draped in sterile manner. A 6-Belarusian sheath, right femoral artery, 5-Belarusian in the right femoral vein. Initially, straight pigtail catheter performed a TIDWELL ventriculogram. LV function mildly reduced with an anterior apical hypokinesis, EF 40% to 45%. FL4 left coronary system, FR4 right coronary system. Moderate disease in the LAD with significant proximal calcification distally, higher grade 60% to 70%. Prior stents have with moderate restenosis throughout, 40% and 50%. Circumflex marginal with a proximal eccentric lesion, 75% to 80% proximal to prior stents and then a distal lesion of 70%, nondominant. Possible place for intervention in the proximal circumflex at a later date. The right with the JR4 was moderately diseased throughout and with a bifurcation lesion of 60% to 70% with mild disease in the PDA and JEAN CLAUDE. No clear culprit for intervention here based on this story. I possibly would consider intervention of this proximal circumflex at later date. HEMODYNAMICS: Aortic 152/55, LV 160/17. IMPRESSION: 1. Left main, free of disease. 2. Left anterior descending with moderate disease throughout with in-stent restenosis in the mid vessel of 40% and a distal lesion of 70% diffusely diseased vessel. 3. Circumflex marginal nondominant. Mid vessel stents were patent with mild restenosis. Proximal vessel has 75% to 80% eccentric lesion with a high-grade lesion distal and then OM branch; not clear if this is the culprit here. We will continue to watch this area, consider proximal circumflex stent at later date. 4. Moderate disease throughout the right previous stents, mildly restenosed and a bifurcation lesion of 60% to 70%. 5. Successful placement of temporary pacemaker through the right femoral vein, MA of 5 with a rate of 60s, intermittently paced in backup mode. 6. Bilateral single renal arteries have mild disease. [facility] [address] [place] [address] INVASIVE PROCEDURE REPORT Name: DEBORA HOWE Room #: 238-P ADM IN M.R.#: [id number] Admission: 08/07/16 Attend Phys: Saba Orozco Discharge: Date of : 53 Date of Service: 08/09/16 0849 Report #: [id number] RECOMMENDATIONS: Total contrast utilized 60 ml. We will continue hydration a.m. lab. <ELECTRONICALLY SIGNED> By: Wesly Jama MD, FACC 08/10/16 0820 0849 1212 Wesly Jama MD, FACC /nt
--- NOTE | ~2016-08-07 | HC ---
[facility] [place] [address] CONSULTATION Name: CARLEYDEBORA Room #: 238-P [facility] IN M.R.#: [id number] Admission: 08/07/16 Attend Phys: Xavi Stapleton MD Discharge: Date of : 53 Report #: [id number] THIS REPORT FOR: //name// CC: FAM physician/PCP Xavi Stapleton DATE OF SERVICE: 08/12/2016 PERSONAL PHYSICIAN: Xavi Stapleton MD CHIEF COMPLAINT: Necrotic right foot ulceration. PREPROCEDURE DIAGNOSES: 1. Chronic ulceration, right foot, with fat layer exposed with necrosis. 2. Diabetes mellitus, controlled. 3. Coronary artery disease. POSTPROCEDURE DIAGNOSES: 1. Chronic ulceration, right foot, with fat layer exposed with necrosis. 2. Diabetes mellitus, controlled. 3. Coronary artery disease. DESCRIPTION OF PROCEDURE: After timeout was taken, verbal consent was obtained from his caregivers and from his DPOA, the patient had excisional debridement down to and including subcutaneous tissue with 100% of the ulceration debrided for a total of less than 20 square cm totally debrided. Lidocaine 1% with epinephrine was used prior to the procedure for anesthesia. Scalpel and forceps were used for further debridement. Bleeding was minimal, easily controlled with pressure. Postdebridement measurements were 1.7 x 2.5 x 0.5 cm, the ulceration was packed with Maxorb Ag after the procedure. Kerlix was placed over the foot itself. The patient tolerated the procedure well. Questions were answered from the family. Please note there were no signs of any actual purulent drainage, there was no actual bony involvement that I can appreciate. There is no bone exposed once the ulceration was debrided. This once again was an excisional debridement down to and including subcutaneous tissue for less than 20 square cm totally debrided. <ELECTRONICALLY SIGNED> By: Jalil Her MD 08/16/16 1022 0826 2048 Jalil Her MD /nt
--- NOTE | ~2016-08-07 | 2DMMODE ---
[facility] [place] [address] 2 D/M-MODE ECHOCARDIOGRAM Name: CARLEYDEBORA Room #: 238-P [facility] IN .R.#: [id number] Admission: 08/07/16 Attend Phys: Saba Orozco Discharge: Date of : 53 Date of Service: 08/09/16 1710 Report #: [id number] THIS REPORT FOR: //name// APPROVED REPORT Study performed: 08/09/2016 13:56:04 EXAM: Comprehensive 2D, Doppler, and color-flow Echocardiogram Patient Location: Bedside/Room 238 Blood Pressure: 147/52 mmHg HR: 53 bpm Rhythm: Irregular Other Information Study Quality: Adequate Technically limited study due to arrhythmia, no mobility of patient, on vent in ICU. Indications Cardiac arrest, complete heart block, temporary pacemaker. Hx: CAD, stents, HTN, DM 2D Dimensions RVDd: 42.04 mm LVEF(%): 50.06 (>50%) IVSd: 10.59 (7-11mm) LVOT Diam: 26.17 (18-24mm) LVDd: 56.92 mm PWd: 9.68 (7-11mm) LVDs: 42.25 (25-40mm) Aortic Root: 37.02 mm Alvares's LVEF: 50.06 % Volumes Left Atrial Volume (Systole) Single Plane 4CH: 72.73 mL Single Plane 2CH: 129.47 mL Aortic Valve AoV Peak Jorge.: 1.31 m/s AO Peak Gr.: 6.90 mmHg LV Max P.70 mmHg LV Max: 0.82 m/s Mitral Valve MV PHT: 81.09 ms [facility] [address] [place] [address] 2 D/M-MODE ECHOCARDIOGRAM Name: CARLEYDEBORA Room #: 238-P [facility] IN [facility]#: [id number] Admission: 08/07/16 Attend Phys: Saba Orozco Discharge: Date of : 53 Date of Service: 08/09/16 1710 Report #: [id number] MV E Max Jorge.: 0.56 m/s E/A Ratio: 0.6 MV A Jorge.: 0.92 m/s MV Decel. Time: 279.63 ms Pulmonary Valve PV Peak Jorge.: 1.05 m/s PV Peak Gr.: 4.37 mmHg Tricuspid Valve RAP Estimate: 10.00 mmHg Left Ventricle Left ventricle is borderline dilated. There is normal left ventricular wall thickness. Left ventricular systolic function is borderline. LVEF is 50%. Grade I - abnormal relaxation pattern. Right Ventricle Right ventricle is not well visualized. Atria Left atrium is dilated. The right atrium size is normal. Aortic Valve The Aortic valve is sclerotic. Trace to mild aortic regurgitation. There is no aortic valvular stenosis. Mitral Valve The mitral valve is normal in structure. Trace to mild mitral regurgitation. Tricuspid Valve The tricuspid valve is normal in structure. There is no tricuspid valve regurgitation noted. Pulmonic Valve The pulmonary valve is normal in structure. Trace pulmonic regurgitation. Great Vessels There is borderline aortic root dilation. Ascending aorta is not well visualized. IVC is dilated and collapses <50% with inspiration. <Conclusion> Left ventricle is borderline dilated. LVEF is 50%. Left atrium is dilated. [facility] [employer] [address] [place] [address] 2 D/M-MODE ECHOCARDIOGRAM Name: DEBORA HOWE Room #: 238-P ADM IN M.R.#: [id number] Admission: 08/07/16 Attend Phys: Saba Orozco Discharge: Date of : 53 Date of Service: 08/09/161709 Report #: [id number] The Aortic valve is sclerotic. Trace to mild aortic regurgitation. Trace to mild mitral regurgitation. <ELECTRONICALLY SIGNED> By: Gen Hu MD 08/09/161709 09 09 Gen Hu MD /INF
--- NOTE | ~2016-08-07 | O ---
[facility] [place] [address] OPERATIVE REPORT Name: CARLEYDEBORA Room #: 238-P ADM IN M.R.#: [id number] Admission: 08/07/16 Attend Phys: Xavi Stapleton MD Discharge: Date of : 53 Report #: [id number] THIS REPORT FOR: //name// CC: [facility] physician/PCP Xavi Stapleton PROCEDURE: Diagnostic bronchoscopy. CLINICAL HISTORY: A 60-year-old white male with recurrent respiratory failure. The patient has a trouble clearing secretions. Mucus plugging was concerned. Diagnostic bronchoscopy was performed. DESCRIPTION OF PROCEDURE: The patient was just intubated. To the previously placed ET tube, a flexible portable fiberoptic bronchoscope was introduced without difficulty. Distal trachea was unremarkable. Mild clear secretions were seen without mucus plugging. Of note, the ET tube is approximately 2.5 cm above the irma. Otherwise, the distal trachea was normal. Irma was normal. Right mainstem bronchus, right upper lobe, right middle lobe and right lower lobe were normal. Left mainstem bronchus, left upper lobe and left lower lobe was also unremarkable. No evidence of mucus plugging seen. The patient tolerated the procedure well. Bowel sounds and saturation throughout the study were within normal range. IMPRESSION: Normal airways. <ELECTRONICALLY SIGNED> By: Malachi Glover MD 08/19/16 1606 1452 1526 Malachi Glover MD /romero
--- NOTE | ~2016-08-07 | 2DMMODE ---
[address] [address] 2 D/M-MODE ECHOCARDIOGRAM Name: CARLEYDEBORA Room #: 203-P ADM IN M.R.#: [id number] Admission: 08/07/16 Attend Phys: Saba Orozco Discharge: Date of : 53 Date of Service: 08/25/16 1620 Report #: [id number] THIS REPORT FOR: //name// APPROVED REPORT Study performed: 08/25/2016 13:55:19 EXAM: Limited 2D Echocardiogram Patient Location: Bedside Room #: 203 Blood Pressure: 146/61 mmHg HR: 65 bpm Other Information Study Quality: Adequate Indications Diabetes Syncope Left Ventricle The left ventricle is normal size. There is normal left ventricular wall thickness. Left ventricular systolic function is normal. LVEF 50%. Diastolic function was not assessed. Right Ventricle The right ventricle is normal size. The right ventricular systolic function is normal. Device lead is present in the right ventricle. Atria The left atrium size is normal. The right atrium size is normal. Aortic Valve Aortic valve is calcified. No Doppler Mitral Valve The mitral valve is normal in structure. No Doppler Tricuspid Valve The tricuspid valve is normal in structure. Pulmonic Valve [address] [address] 2 D/M-MODE ECHOCARDIOGRAM Name: DEBORA HOWE Room #: 203-P ADM IN .R.#: [id number] Admission: 08/07/16 Attend Phys: Saba Orozco Discharge: Date of : 53 Date of Service: 08/25/161619 Report #: [id number] The pulmonary valve is normal in structure. Great Vessels The aortic root is normal in size. IVC is dilated and collapses <50% with inspiration. Pericardium There is no pericardial effusion. <Conclusion> Left ventricular systolic function is normal. LVEF 50%. Aortic valve is calcified. No Doppler The mitral valve is normal in structure. No Doppler There is no pericardial effusion. <ELECTRONICALLY SIGNED> By: Brandon Martinez MD, [facility] 08/25/161619 19 19 Brandon Martinez MD, FAC /INF
--- NOTE | ~2016-08-07 | HC ---
[facility] [place] [address] CONSULTATION Name: DEBORA WONG Room #: 238-P [facility] IN .R.#: [id number] Admission: 08/07/16 Attend Phys: Xavi Stapleton MD Discharge: Date of : 53 Report #: [id number] THIS REPORT FOR: //name// CC: DHARMESH physician/PCP Xavi Stapleton DATE OF SERVICE: 08/08/2016 CONSULTATION: Infectious diseases. DATE OF CONSULTATION: 08/08/2016 HISTORY OF PRESENT ILLNESS: Huey Clark is a 60-year-old gentleman who presented to the emergency room on August 07, with generalized weakness associated with nausea, vomiting and melanotic diarrhea. He had been ill for about 1 day. In the emergency room, the patient noted to have a temperature of 101.5 and bradycardia. The EKG demonstrated complete heart block. The EKG had possible acute cholecystitis. He was noted to have chronic skin changes on his right foot. The patient was admitted to the ICU with plans to obtain an MRI of the foot to rule out osteomyelitis before a pacemaker would be placed for the heart block. Unfortunately during the night, the patient had a monitored cardiac arrest with ventricular fibrillation; his heart rhythm was restored with one shock, but the patient required intubation for airway protection and abnormal mental status after the code. Infectious disease consultation was requested regarding his foot infection. PAST MEDICAL HISTORY: Significant for diabetes. The patient has not had any health insurance. He has had essentially neglected his diabetes for about 10 years. He does not monitor his glucose. He does not take any medication to lower his sugar. He also has diagnoses of hypertension, hyperlipidemia, and coronary artery disease. He had multiple stents placed several years ago. ALLERGIES: He notes allergy to CIPRO. FAMILY HISTORY: Noncontributory. SOCIAL HISTORY: The patient is . He has family out of town. 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 He does not have any history of tobacco, alcohol, or drugs. REVIEW OF SYSTEMS: Unavailable as the patient is sedated on a ventilator. PHYSICAL EXAMINATION: GENERAL: The patient appears thin, somewhat undernourished, sedated, but comfortable, in no distress. VITAL SIGNS: Showed the emergency room noted a temperature of 101.5, a pulse of [facility] [address] [place] [address] CONSULTATION Name: DEBORA WONG Room #: 238-P [facility] IN [facility].#: [id number] Admission: 08/07/16 Attend Phys: Xavi Stapleton MD Discharge: Date of : 53 Report #: [id number], and a blood pressure of 163/54. ENT: Demonstrates orogastric and orotracheal tubes. There is some bloody drainage from the endotracheal tube. The patient was sedated and was not aroused. HEART: Sounds S1, S2. Regular rate and rhythm. LUNGS: Clear. ABDOMEN: Belly thin, soft, not tender. EXTREMITIES: The patient has stasis changes, the right worse than the left. On the right foot and ankle, the skin was extremely thick and scaly with a thick brownish crust almost like an elephant hide. There was a callus on the plantar surface of the first metatarsophalangeal joint, which was cracked. It was difficult to measure the actual dimensions of the wound because of irregularity and the hypertrophic skin around the wound. There was some bloody drainage on the plantar surface. The foot itself did not appear particularly cellulitic and there was no purulent drainage. Pulses could not be palpated in either foot. The left leg had some venous stasis changes, but not nearly to the same degree. It had intact epithelium. The nails demonstrated significant onycholysis, onychomycosis, and general poor pedal hygiene. LABORATORY STUDIES: White count is 10.5, hemoglobin 14, and platelets 85,000. Electrolytes are normal. BUN 25, creatinine has gone from 1.1 to 1.6. Troponin is elevated at 1.95. The urinalysis showed red cells, but no white cells. The swab of the naris for MRSA was negative. Influenza antigen negative. Blood cultures times 2 are negative so far. Wound culture has been ordered. In summary, the patient with complete heart block, bradycardia, and then goes into ventricular fibrillation. He was noted incidentally to have a fever and an abnormal skin on his feet with a crack with bloody drainage on the right. At this point, I think it is reasonable to treat the patient for diabetic foot wound pending further workup. The patient is on Zosyn, this is appropriate. We will need to watch the creatinine carefully and if it goes over 2, we will need to reduce the dose of the antibiotic. I would like to check for any metabolic impediments to wound healing such as low albumin, low zinc, and low thyroid. Hemoglobin A1c was ordered and pending. A sedimentation rate may be helpful parameter to follow as well. When the patient is stable, we will want to do imaging of the foot, MRI with contrast to give us the best images, but I suspect the patient will probably have a pacemaker and possibly some new stents, which may contraindicate the magnetic study. The next best study would be a CT scan with contrast if the creatinine will allow. Length of therapy will depend in part on the results of the study in terms of osteomyelitis or not. I would like to have the pharmacy compound 20% urea cream in Cetaphil lotion as an agent to try to dissolve and moisturize the thick scales and calluses on the feet to try to get a more normal skin that may be easier to evaluate the wound when all this extra callus and skin can be peeled off. [facility] [address] [place] [address] CONSULTATION Name: DEBORA WONG Room #: 238-P ADM IN M.R.#: [id number] Admission: 08/07/16 Attend Phys: Xavi Stapleton MD Discharge: Date of : 53 Report #: [id number] I appreciate the opportunity to offer input in the care of this complex gentleman. Obviously, we will need to see what his cardiac status is. As soon as the patient makes recovery, it would be worthwhile for him to pay attention to his diabetes in his feet to manage the current infection and prevent further problems, even amputation. I appreciate the opportunity to offer input in the care of Mr Wong. Dr. Kameron Johnson will return tomorrow and assume follow up infectious disease care. Thank you again for this consultation. <ELECTRONICALLY SIGNED> By: José Antonio Cantu MD 08/22/16 1845 0759 0908 José Antonio Cantu MD /nt
--- NOTE | ~2016-08-07 | O ---
[facility] [place] [address] OPERATIVE REPORT Name: CARLEYDEBORA Room #: 238-P [facility] IN M.R.#: [id number] Admission: 08/07/16 Attend Phys: Xavi Stapleton MD Discharge: Date of : 53 Report #: [id number] THIS REPORT FOR: //name// CC: [facility] physician/PCP Xavi Stapleton PROCEDURE: Emergent intubation. CLINICAL HISTORY: A 60-year-old white male with multiple medical problems including recent witnessed cardiac arrest, now with acute respiratory distress. The patient was urgently intubated with a 7.5 mm ET tube. We utilized a GlideScope to visualize the upper airways. We then utilized a curved . After having visualized the vocal cords, a 7.5 ET tube was then placed. Capnography revealed positive for CO2 detection. A portable chest x-ray is pending. The ET tube is at the lip around 25 cm. Bowel sounds and saturation throughout the study were within normal range. <ELECTRONICALLY SIGNED> By: Malachi Glover MD 08/19/16 1606 1452 1523 Malachi Glover MD /nt
--- NOTE | ~2016-08-07 | EKG ---
[address] [address] ELECTROCARDIOGRAM REPORT Name: DEBORA HOEW Room #: 238-P ADM IN M.R.#: [id number] Admission: 08/07/16 Attend Phys: Xavi Stapleton MD Discharge: Date of : 53 Report #: [id number] THIS REPORT FOR: //name// [facility] Test Date: 2016-08-07 Test Time: 21:15:26 Pat Name: DEBORA HOWE Department: Room: 238 P Gender: M Investor Relations Manager: sam : 1955 Requested By: Fuad Johnson Order Number: [id number] MD: Fuad Johnson Measurements Intervals [place] Rate: 55 P: 67 PA: QRS: 97 QRSD: 165 T: 51 QT: 485 QTc: 464 Interpretive Statements Sinus rhythm Complete AV block with wide QRS complex RBBB and LPFB LEFT BUNDLE BRANCH BLOCK no longer present Electronically Signed On 08-08-2016 20:12:01 CDT by Fuad Johnson [email or web address] <ELECTRONICALLY SIGNED> By: Fuad Johnson MD 08/08/162011 14 14 Fuad Johnson MD /MARK
[~2016-08-07 14:33] MED LIST: ANTACID500 MG PO; ASPIRIN EC81 M1 PO; CALCIUM PO; CLOPIDOGREL PO; COLACE 100 MG100 MG PO; DAPTOMYCIN IV; DIFLUCAN PO; FISHOIL PO; HYDROCODON-ACE1 EAC7 PO; JANUVIA100 MG PO; JANUVIA25 MG; LANTUS SC; LIPITOR20 MG PO; LISINOPRIL10 MG PO; LISINOPRIL20 MG PO; MULTIVITAMINS PO; SENNA PO; SIMVASTATIN40 MG PO
[2016-08-07 15:06] LABS: EOSINOPHILS 0.2 % (0.0-3.0); HEMOGLOBIN 14.4 gm/dL (14.0-18.0)
[2016-08-07 15:08] LABS: BASOPHILS 0.5 % (0.0-2.0); HEMATOCRIT 41.7 % (42.0-52.0); LYMPHOCYTES 5.3 % (24.0-44.0); MCHC 34.5 g/dL (28.0-37.0); MCV 86.9 fL (80.0-100.0); MONOCYTES 1.3 % (1.0-8.0); PLATELET COUNT 96 thou/uL (150-400); POLYS 92.7 % (36.0-66.0); RDW 13.6 % (10.5-14.5); WBC 5.4 thou/uL (4.0-11.0)
[2016-08-07 15:11] LABS: MANUAL DIFF NO
[2016-08-07 15:12] LABS: CALCIUM 9.3 mg/dL (8.5-10.1); CREATININE 1.1 mg/dL (0.6-1.3); POTASSIUM 4.6 mmol/L (3.5-5.1)
[2016-08-07 15:17] LABS: ALBUMIN 3.5 g/dL (3.4-5.0); DIRECT BILIRUBIN 0.4 mg/dL (<0.1-0.3); TOTAL PROTEIN 7.9 g/dL (6.4-8.2)
[2016-08-07 20:04] LABS: APTT 26.9 Seconds (24.5-32.8); INR 1.1; PROTIME 11.9 Seconds (9.3-11.4)
[2016-08-07 22:43] LABS: ABG SAMPLE TYPE ARTERIAL; BE(vivo) -3.1 mmol/L (-2 to +3); HCO3 20.7 mmol/L (22.0-26.0); LACTATE 2.95 mmol/L (0.5-2.0); O2(CT) 19.4 mL/dL (15.0-23.0); O2Hb 98.2 % (92.0-98.0); PCO2 33.7 mmHg (35.0-45.0); PO2 299.7 mmHg (80.0-100.0); pH 7.407 (7.360-7.450); sO2 99.7 % (92.0-98.0); tCO2 21.8 mmol/L (24.0-30.0)
[2016-08-07 22:44] LABS: STICK SITE R.RADIAL; TIDAL VOLUME 650 ml
[2016-08-08] VITALS (96 sets, daily range): BP systolic 83–183; BP diastolic 43–76
[2016-08-08 07:11] LABS: HEMATOCRIT 42.6 % (42.0-52.0); HEMOGLOBIN 14.4 gm/dL (14.0-18.0); MCH 30.3 pg (26.0-34.0); MCHC 33.9 g/dL (28.0-37.0); MCV 89.4 fL (80.0-100.0); RBC 4.77 mil/uL (4.50-6.00); RDW 13.8 % (10.5-14.5); WBC 10.5 thou/uL (4.0-11.0)
[2016-08-08 07:19] LABS: CALCIUM 8.8 mg/dL (8.5-10.1); CREATININE 1.6 mg/dL (0.6-1.3); POTASSIUM 4.5 mmol/L (3.5-5.1)
[2016-08-08 12:32] LABS: URINE BILIRUBIN NEGATIVE (Negative); URINE BLOOD 3+ (Negative); URINE COLOR YELLOW; URINE GLUCOSE-RANDOM* NEGATIVE (Negative); URINE KETONES NEGATIVE (Negative); URINE LEUKOCYTES-REFLEX TRACE (Negative); URINE PROTEIN (DIPSTICK) 1+ (Negative); URINE SPECIFIC GRAVITY 1.015 (1.003-1.035)
[2016-08-08 12:38] LABS: CASTS None Seen /LPF (None Seen); CRYSTALS None Seen /LPF (None Seen); SQUAMOUS None Seen /LPF (0-3)
[2016-08-08 12:39] LABS: FINE GRANULAR CASTS 0-3 Few /LPF (None Seen)
[2016-08-08 12:40] LABS: URINE WBC-REFLEX 0-5 Rare /HPF (0-5)
[2016-08-08 12:41] LABS: RENAL EPITHELIAL CELLS 0-3 Few /LPF (None Seen)
[2016-08-09] VITALS (51 sets, daily range): BP systolic 101–168; BP diastolic 46–68
[2016-08-09 06:27] LABS: HEMOGLOBIN 13.8 gm/dL (14.0-18.0); MCH 29.4 pg (26.0-34.0); MCHC 33.6 g/dL (28.0-37.0); MCV 87.4 fL (80.0-100.0); RBC 4.69 mil/uL (4.50-6.00); RDW 14.2 % (10.5-14.5); WBC 4.5 thou/uL (4.0-11.0)
[2016-08-09 06:30] LABS: CALCIUM 8.4 mg/dL (8.5-10.1); POTASSIUM 4.3 mmol/L (3.5-5.1)
[2016-08-09 06:37] LABS: PREALBUMIN 11.9 mg/dL (18.0-35.7)
[2016-08-10] VITALS (36 sets, daily range): BP systolic 106–150; BP diastolic 44–63
[2016-08-10 05:08] LABS: GLYCOHEMOGLOBIN (HGB A1C) 9.9 % (4.8-5.6)
[2016-08-10 05:30] LABS: HEMOGLOBIN 11.9 gm/dL (14.0-18.0); RDW 14.4 % (10.5-14.5)
[2016-08-10 05:32] LABS: MCH 29.9 pg (26.0-34.0); RBC 3.98 mil/uL (4.50-6.00); WBC 3.6 thou/uL (4.0-11.0)
[2016-08-10 06:06] LABS: ALBUMIN 1.8 g/dL (3.4-5.0); CALCIUM 8.1 mg/dL (8.5-10.1); CREATININE 2.2 mg/dL (0.7-1.3); POTASSIUM 4.1 mmol/L (3.5-5.1); TOTAL BILIRUBIN 0.8 mg/dL (<0.1-1.0); TOTAL PROTEIN 5.4 g/dL (6.4-8.2)
[2016-08-10 11:45] LABS: INR 1.1; PROTIME 11.4 Seconds (9.3-11.4)
[2016-08-10 11:46] LABS: APTT 31.5 Seconds (24.5-32.8)
[2016-08-10 12:18] LABS: FOLIC ACID 3.7 ng/mL (8.6-58.9)
[2016-08-10 23:08] LABS: HEPATITIS C VIRUS AB <0.1 (0.0-0.9); HIV ANTIBODY Non Reactive (Non Reactive)
[2016-08-11] VITALS (24 sets, daily range): BP systolic 110–158; BP diastolic 46–69
[2016-08-11 04:36] LABS: HEMOGLOBIN 11.2 gm/dL (14.0-18.0); MCV 87.9 fL (80.0-100.0); WBC 3.8 thou/uL (4.0-11.0)
[2016-08-11 04:38] LABS: MCHC 34.1 g/dL (28.0-37.0); RBC 3.75 mil/uL (4.50-6.00); RDW 14.6 % (10.5-14.5)
[2016-08-11 04:48] LABS: CALCIUM 7.9 mg/dL (8.5-10.1); CREATININE 2.5 mg/dL (0.7-1.3)
[2016-08-11 09:04] LABS: ABG SAMPLE TYPE ARTERIAL; BE(vivo) -8.9 mmol/L (-2 to +3); HCO3 16.6 mmol/L (22.0-26.0); LACTATE 1.01 mmol/L (0.5-2.0); O2(CT) 17.3 mL/dL (15.0-23.0); O2Hb 97.2 % (92.0-98.0); PO2 125.6 mmHg (80.0-100.0); sO2 98.2 % (92.0-98.0); tCO2 17.7 mmol/L (24.0-30.0)
[2016-08-11 09:05] LABS: Pressure Support 5 cm H20; STICK SITE LINE; pH 7.295 (7.360-7.450)
[2016-08-12] VITALS (20 sets, daily range): BP systolic 128–168; BP diastolic 50–66
[2016-08-12 05:29] LABS: HEMATOCRIT 32.9 % (42.0-52.0); HEMOGLOBIN 11.2 gm/dL (14.0-18.0); MCH 30.1 pg (26.0-34.0); MCV 88.5 fL (80.0-100.0); RBC 3.72 mil/uL (4.50-6.00); RDW 14.5 % (10.5-14.5); WBC 4.6 thou/uL (4.0-11.0)
[2016-08-12 05:34] LABS: ALBUMIN 1.8 g/dL (3.4-5.0); CALCIUM 8.2 mg/dL (8.5-10.1); CREATININE 2.4 mg/dL (0.7-1.3); PHOSPHORUS 4.4 mg/dL (2.5-4.9); POTASSIUM 3.6 mmol/L (3.5-5.1)
[2016-08-13] VITALS (21 sets, daily range): BP systolic 132–170; BP diastolic 51–72
[2016-08-13 05:20] LABS: CALCIUM 8.5 mg/dL (8.5-10.1); CREATININE 2.4 mg/dL (0.7-1.3); POTASSIUM 4.2 mmol/L (3.5-5.1)
[2016-08-13 05:25] LABS: HEMATOCRIT 33.1 % (42.0-52.0); HEMOGLOBIN 11.4 gm/dL (14.0-18.0); MCHC 34.4 g/dL (28.0-37.0); MCV 87.2 fL (80.0-100.0); RBC 3.8 mil/uL (4.50-6.00); RDW 14.5 % (10.5-14.5); WBC 5.2 thou/uL (4.0-11.0)
[2016-08-13 10:06] LABS: ABG SAMPLE TYPE ARTERIAL; BE(vivo) -8.8 mmol/L (-2 to +3); HCO3 16.1 mmol/L (22.0-26.0); LACTATE 0.87 mmol/L (0.5-2.0); O2Hb 97.5 % (92.0-98.0); PCO2 31.8 mmHg (35.0-45.0); PO2 147.6 mmHg (80.0-100.0); sO2 98.8 % (92.0-98.0); tCO2 17.1 mmol/L (24.0-30.0)
[2016-08-13 10:07] LABS: STICK SITE LINE; TIDAL VOLUME 650 ml; pH 7.322 (7.360-7.450)
[2016-08-14] VITALS (37 sets, daily range): BP systolic 129–167; BP diastolic 53–83
[2016-08-14 03:49] LABS: ABSOLUTE NEUTROPHILS 3.7 thou/uL (1.4-8.2); BASOPHILS 0.6 % (0.0-2.0); EOSINOPHILS 2.1 % (0.0-3.0); HEMATOCRIT 34.2 % (42.0-52.0); HEMOGLOBIN 11.6 gm/dL (14.0-18.0); LYMPHOCYTES 18.8 % (24.0-44.0); MCH 29.9 pg (26.0-34.0); MCV 88.1 fL (80.0-100.0); MONOCYTES 11.6 % (1.0-8.0); PLATELET COUNT 108 thou/uL (150-400); POLYS 66.9 % (36.0-66.0); RBC 3.88 mil/uL (4.50-6.00); RDW 14.8 % (10.5-14.5); WBC 5.5 thou/uL (4.0-11.0)
[2016-08-14 04:07] LABS: MANUAL DIFF NO
[2016-08-14 04:10] LABS: CALCIUM 8.7 mg/dL (8.5-10.1); PHOSPHORUS 3.9 mg/dL (2.5-4.9); POTASSIUM 4.2 mmol/L (3.5-5.1)
[2016-08-14 05:00] LABS: ABG SAMPLE TYPE ARTERIAL; BE(vivo) -9.2 mmol/L (-2 to +3); HCO3 16.4 mmol/L (22.0-26.0); LACTATE 0.73 mmol/L (0.5-2.0); O2(CT) 16.6 mL/dL (15.0-23.0); O2Hb 96.9 % (92.0-98.0); PCO2 34.4 mmHg (35.0-45.0); PO2 128.4 mmHg (80.0-100.0); sO2 98.3 % (92.0-98.0); tCO2 17.4 mmol/L (24.0-30.0)
[2016-08-14 05:01] LABS: STICK SITE LINE; pH 7.295 (7.360-7.450)
[2016-08-14 05:02] LABS: TIDAL VOLUME 650 ml
[2016-08-15] VITALS (48 sets, daily range): BP systolic 115–159; BP diastolic 53–81
[2016-08-15 03:51] LABS: HEMATOCRIT 34.9 % (42.0-52.0); HEMOGLOBIN 11.5 gm/dL (14.0-18.0); MCH 29.3 pg (26.0-34.0); MCHC 32.9 g/dL (28.0-37.0); MCV 89.2 fL (80.0-100.0); PLATELET COUNT 158 thou/uL (150-400); RBC 3.91 mil/uL (4.50-6.00); RDW 14.8 % (10.5-14.5); WBC 5.4 thou/uL (4.0-11.0)
[2016-08-15 04:08] LABS: MANUAL DIFF YES
[2016-08-15 04:10] LABS: ALBUMIN 2.2 g/dL (3.4-5.0); CREATININE 2.2 mg/dL (0.7-1.3); PHOSPHORUS 3.9 mg/dL (2.5-4.9); POTASSIUM 4.2 mmol/L (3.5-5.1)
[2016-08-15 05:54] LABS: ABSOLUTE NEUTROPHILS 3.9 thou/uL (1.4-8.2); TOTAL CELL COUNT 100
[2016-08-16] VITALS (47 sets, daily range): BP systolic 116–167; BP diastolic 52–139
[2016-08-16 02:21] LABS: ALBUMIN 2.2 g/dL (3.4-5.0); CALCIUM 9.2 mg/dL (8.5-10.1); CREATININE 1.9 mg/dL (0.7-1.3); PHOSPHORUS 3.1 mg/dL (2.5-4.9)
[2016-08-16 02:49] LABS: POTASSIUM 3.7 mmol/L (3.5-5.1)
[2016-08-17] VITALS (41 sets, daily range): BP systolic 118–166; BP diastolic 55–85
[2016-08-17 06:18] LABS: MCH 29.9 pg (26.0-34.0)
[2016-08-17 06:20] LABS: HEMATOCRIT 31.3 % (42.0-52.0); HEMOGLOBIN 10.5 gm/dL (14.0-18.0); MCHC 33.7 g/dL (28.0-37.0); MCV 88.7 fL (80.0-100.0); RBC 3.53 mil/uL (4.50-6.00); WBC 6.1 thou/uL (4.0-11.0)
[2016-08-17 06:42] LABS: CALCIUM 9.1 mg/dL (8.5-10.1); CREATININE 1.6 mg/dL (0.7-1.3); PHOSPHORUS 3.2 mg/dL (2.5-4.9); POTASSIUM 3.5 mmol/L (3.5-5.1)
[2016-08-17 10:35] LABS: ABG COMMENT CPAP X 1 HR.; ABG SAMPLE TYPE ARTERIAL; BE(vivo) -2.1 mmol/L (-2 to +3); HCO3 22.4 mmol/L (22.0-26.0); LACTATE 0.84 mmol/L (0.5-2.0); O2(CT) 16.3 mL/dL (15.0-23.0); O2Hb 97.6 % (92.0-98.0); PCO2 37.5 mmHg (35.0-45.0); Pressure Support 6 cm H20; STICK SITE R.RADIAL; pH 7.395 (7.360-7.450); sO2 98.6 % (92.0-98.0); tCO2 23.6 mmol/L (24.0-30.0)
[2016-08-18] VITALS (16 sets, daily range): BP systolic 115–172; BP diastolic 55–90
[2016-08-18 05:02] LABS: HEMATOCRIT 34.1 % (42.0-52.0); HEMOGLOBIN 11.3 gm/dL (14.0-18.0); MCH 29.4 pg (26.0-34.0); MCHC 33.2 g/dL (28.0-37.0); MCV 88.6 fL (80.0-100.0); RBC 3.85 mil/uL (4.50-6.00); RDW 14.5 % (10.5-14.5); WBC 7.6 thou/uL (4.0-11.0)
[2016-08-18 05:19] LABS: ALBUMIN 2.2 g/dL (3.4-5.0); CALCIUM 9.3 mg/dL (8.5-10.1); CREATININE 1.5 mg/dL (0.7-1.3); PHOSPHORUS 3.3 mg/dL (2.5-4.9); POTASSIUM 3.5 mmol/L (3.5-5.1)
[2016-08-18 11:57] LABS: ABG SAMPLE TYPE ARTERIAL; HCO3 19.9 mmol/L (22.0-26.0); LACTATE 1.17 mmol/L (0.5-2.0); O2(CT) 17.6 mL/dL (15.0-23.0); PCO2 40.7 mmHg (35.0-45.0); PO2 173.5 mmHg (80.0-100.0); STICK SITE R.RADIAL; TIDAL VOLUME 550 ml; pH 7.307 (7.360-7.450); tCO2 21.1 mmol/L (24.0-30.0)
[2016-08-18 16:31] LABS: TROPONIN-I 0.72 ng/mL (<0.04-0.07)
[2016-08-18 22:20] LABS: TROPONIN-I 0.8 ng/mL (<0.04-0.07)
[2016-08-19] VITALS (26 sets, daily range): BP systolic 111–146; BP diastolic 51–73
[2016-08-19 04:26] LABS: HEMATOCRIT 32.6 % (42.0-52.0); HEMOGLOBIN 10.9 gm/dL (14.0-18.0); MCH 29.5 pg (26.0-34.0); MCHC 33.3 g/dL (28.0-37.0); MCV 88.7 fL (80.0-100.0); RBC 3.68 mil/uL (4.50-6.00); RDW 14.7 % (10.5-14.5); WBC 8.8 thou/uL (4.0-11.0)
[2016-08-19 04:47] LABS: ALBUMIN 2.1 g/dL (3.4-5.0); CALCIUM 8.7 mg/dL (8.5-10.1); CREATININE 1.6 mg/dL (0.7-1.3); PHOSPHORUS 3.9 mg/dL (2.5-4.9); POTASSIUM 3.6 mmol/L (3.5-5.1)
[2016-08-20] VITALS (21 sets, daily range): BP systolic 111–157; BP diastolic 49–110
[2016-08-20 04:36] LABS: HEMATOCRIT 32.7 % (42.0-52.0); HEMOGLOBIN 10.9 gm/dL (14.0-18.0); MCH 29.7 pg (26.0-34.0); MCHC 33.4 g/dL (28.0-37.0); MCV 88.9 fL (80.0-100.0); RBC 3.68 mil/uL (4.50-6.00); RDW 14.5 % (10.5-14.5); WBC 7.4 thou/uL (4.0-11.0)
[2016-08-20 04:57] LABS: ALBUMIN 2.1 g/dL (3.4-5.0); CALCIUM 8.6 mg/dL (8.5-10.1); CREATININE 1.7 mg/dL (0.7-1.3); PHOSPHORUS 3.4 mg/dL (2.5-4.9); POTASSIUM 3.2 mmol/L (3.5-5.1)
[2016-08-21] VITALS (12 sets, daily range): BP systolic 135–167; BP diastolic 51–73
[2016-08-21 04:04] LABS: HEMATOCRIT 31.1 % (42.0-52.0); HEMOGLOBIN 10.4 gm/dL (14.0-18.0); MCH 29.8 pg (26.0-34.0); MCHC 33.4 g/dL (28.0-37.0); MCV 89.4 fL (80.0-100.0); RBC 3.48 mil/uL (4.50-6.00); RDW 14.9 % (10.5-14.5); WBC 6.9 thou/uL (4.0-11.0)
[2016-08-21 04:16] LABS: ALBUMIN 2.1 g/dL (3.4-5.0); CALCIUM 8.7 mg/dL (8.5-10.1); CREATININE 1.8 mg/dL (0.7-1.3); PHOSPHORUS 3.8 mg/dL (2.5-4.9)
[2016-08-21 10:07] LABS: ABG SAMPLE TYPE ARTERIAL; BE(vivo) -2.5 mmol/L (-2 to +3); HCO3 23.4 mmol/L (22.0-26.0); LACTATE 0.89 mmol/L (0.5-2.0); O2(CT) 16.6 mL/dL (15.0-23.0); O2Hb 96.1 % (92.0-98.0); PCO2 44.7 mmHg (35.0-45.0); PO2 96.8 mmHg (80.0-100.0); Pressure Support 8 cm H20; STICK SITE R.RADIAL; pH 7.337 (7.360-7.450); tCO2 24.8 mmol/L (24.0-30.0)
[2016-08-22] VITALS (23 sets, daily range): BP systolic 117–153; BP diastolic 50–72
[2016-08-22 04:30] LABS: HEMATOCRIT 30.4 % (42.0-52.0); HEMOGLOBIN 10.1 gm/dL (14.0-18.0); MCH 29.8 pg (26.0-34.0); MCHC 33.2 g/dL (28.0-37.0); MCV 89.6 fL (80.0-100.0); RBC 3.39 mil/uL (4.50-6.00); RDW 15.1 % (10.5-14.5); WBC 5.9 thou/uL (4.0-11.0)
[2016-08-22 04:55] LABS: ALBUMIN 2.1 g/dL (3.4-5.0); CALCIUM 8.7 mg/dL (8.5-10.1); CREATININE 1.7 mg/dL (0.7-1.3); PHOSPHORUS 3.3 mg/dL (2.5-4.9); POTASSIUM 3.4 mmol/L (3.5-5.1)
[2016-08-22 09:56] LABS: ABG SAMPLE TYPE ARTERIAL; BE(vivo) 0.5 mmol/L (-2 to +3); HCO3 26.3 mmol/L (22.0-26.0); LACTATE 1.06 mmol/L (0.5-2.0); O2(CT) 16.9 mL/dL (15.0-23.0); O2Hb 97.3 % (92.0-98.0); PCO2 47.1 mmHg (35.0-45.0); PO2 112.3 mmHg (80.0-100.0); Pressure Support 8 cm H20; STICK SITE R.RADIAL; pH 7.364 (7.360-7.450); sO2 97.9 % (92.0-98.0); tCO2 27.7 mmol/L (24.0-30.0)
[2016-08-23] VITALS (26 sets, daily range): BP systolic 135–171; BP diastolic 53–79
[2016-08-23 05:48] LABS: HEMOGLOBIN 11.3 gm/dL (14.0-18.0); MCH 29.7 pg (26.0-34.0); MCHC 33.3 g/dL (28.0-37.0); MCV 89.3 fL (80.0-100.0); RBC 3.81 mil/uL (4.50-6.00); RDW 14.8 % (10.5-14.5); WBC 6.3 thou/uL (4.0-11.0)
[2016-08-23 06:05] LABS: CREATININE 1.5 mg/dL (0.7-1.3); POTASSIUM 3.8 mmol/L (3.5-5.1)
[2016-08-24] VITALS (17 sets, daily range): BP systolic 142–172; BP diastolic 52–77
[2016-08-24 04:44] LABS: HEMATOCRIT 34.8 % (42.0-52.0); HEMOGLOBIN 11.5 gm/dL (14.0-18.0); MCH 29.5 pg (26.0-34.0); MCV 89.6 fL (80.0-100.0); RBC 3.89 mil/uL (4.50-6.00); RDW 14.9 % (10.5-14.5); WBC 6.3 thou/uL (4.0-11.0)
[2016-08-24 04:53] LABS: ALBUMIN 2.4 g/dL (3.4-5.0); CALCIUM 9.3 mg/dL (8.5-10.1); CREATININE 1.6 mg/dL (0.7-1.3); PHOSPHORUS 2.6 mg/dL (2.5-4.9)
[2016-08-25 02:22] LABS: HEMATOCRIT 36.4 % (42.0-52.0); MCH 29.2 pg (26.0-34.0); MCHC 32.9 g/dL (28.0-37.0); MCV 88.9 fL (80.0-100.0); RBC 4.1 mil/uL (4.50-6.00); RDW 14.6 % (10.5-14.5); WBC 7.6 thou/uL (4.0-11.0)
[2016-08-25 02:29] LABS: ALBUMIN 2.5 g/dL (3.4-5.0); CALCIUM 9.7 mg/dL (8.5-10.1); CREATININE 1.7 mg/dL (0.7-1.3); PHOSPHORUS 3.3 mg/dL (2.5-4.9); POTASSIUM 3.8 mmol/L (3.5-5.1)
[2016-08-25 02:55] VITALS: BP 161/83
[2016-08-25 08:13] VITALS: BP 151/73
[2016-08-25 11:40] LABS: CHOLESTEROL 224 mg/dL (<200); HDL CHOLESTEROL 21 mg/dL (>40); LDL CHOLESTEROL 168 mg/dL (<100); TC:HDL 10.7 Ratio (Not establshd); TRIGLYCERIDE 179 mg/dL (<150); VLDL 36 mg/dL (<40)
[2016-08-25 11:41] VITALS: BP 146/61
[2016-08-25 13:02] LABS: URINE BILIRUBIN NEGATIVE (Negative); URINE BLOOD 1+ (Negative); URINE COLOR YELLOW; URINE GLUCOSE-RANDOM* NEGATIVE (Negative); URINE KETONES NEGATIVE (Negative); URINE LEUKOCYTES-REFLEX NEGATIVE (Negative); URINE PROTEIN (DIPSTICK) 1+ (Negative); URINE SPECIFIC GRAVITY 1.015 (1.003-1.035); URINE UROBILINOGEN 0.2 E.U./dl (0.2-1.0)
[2016-08-25 13:11] LABS: AMORPHOUS URATES Few /LPF (None Seen); CASTS None Seen /LPF (None Seen); SQUAMOUS 0-3 Few /LPF (0-3); URINE RBC 0-2 Rare /HPF (0-2); URINE WBC-REFLEX 0-5 Rare /HPF (0-5)
[2016-08-25 17:54] VITALS: BP 156/62
[2016-08-25 19:54] VITALS: BP 154/57
[2016-08-26 02:27] LABS: ALBUMIN 2.4 g/dL (3.4-5.0); CALCIUM 9.1 mg/dL (8.5-10.1); CREATININE 1.9 mg/dL (0.7-1.3); POTASSIUM 3.9 mmol/L (3.5-5.1)
[2016-08-26 03:10] LABS: GLYCOHEMOGLOBIN (HGB A1C) 8.3 % (4.8-5.6)
[2016-08-26 03:14] VITALS: BP 159/60
[2016-08-26 07:41] VITALS: BP 141/49
[2016-08-26 10:27] LABS: ABG SAMPLE TYPE ARTERIAL; BE(vivo) 3.7 mmol/L (-2 to +3); HCO3 26.9 mmol/L (22.0-26.0); O2Hb 94.4 % (92.0-98.0); PCO2 35.8 mmHg (35.0-45.0); PO2 75.7 mmHg (80.0-100.0); pH 7.494 (7.360-7.450); sO2 96.2 % (92.0-98.0)
[2016-08-26 10:28] LABS: STICK SITE R.RADIAL
[2016-08-26 11:05] VITALS: BP 140/53
[2016-08-26 16:31] VITALS: BP 143/50
[2016-08-26 19:34] VITALS: BP 144/54
[2016-08-27 03:27] VITALS: BP 145/57
[2016-08-27 06:03] LABS: HEMATOCRIT 34.9 % (42.0-52.0); HEMOGLOBIN 11.7 gm/dL (14.0-18.0); MCH 29.9 pg (26.0-34.0); MCHC 33.5 g/dL (28.0-37.0); MCV 89.3 fL (80.0-100.0); RBC 3.91 mil/uL (4.50-6.00); RDW 14.7 % (10.5-14.5); WBC 7.8 thou/uL (4.0-11.0)
[2016-08-27 06:24] LABS: ALBUMIN 2.4 g/dL (3.4-5.0); CALCIUM 9.1 mg/dL (8.5-10.1); CREATININE 1.7 mg/dL (0.7-1.3); PHOSPHORUS 3.6 mg/dL (2.5-4.9); POTASSIUM 3.3 mmol/L (3.5-5.1)
[2016-08-27 07:15] VITALS: BP 151/63
[2016-08-27 11:00] VITALS: BP 151/72
[2016-08-27 17:20] VITALS: BP 154/76
[2016-08-27 19:46] VITALS: BP 156/52
[2016-08-28 04:05] VITALS: BP 153/55
[2016-08-28 06:42] LABS: HEMATOCRIT 33.8 % (42.0-52.0); HEMOGLOBIN 11.3 gm/dL (14.0-18.0); MCH 29.8 pg (26.0-34.0); MCHC 33.6 g/dL (28.0-37.0); MCV 88.7 fL (80.0-100.0); RBC 3.81 mil/uL (4.50-6.00); RDW 14.6 % (10.5-14.5); WBC 6.8 thou/uL (4.0-11.0)
[2016-08-28 06:55] LABS: ALBUMIN 2.3 g/dL (3.4-5.0); CALCIUM 8.8 mg/dL (8.5-10.1); CREATININE 1.5 mg/dL (0.7-1.3); PHOSPHORUS 3.6 mg/dL (2.5-4.9); POTASSIUM 3.3 mmol/L (3.5-5.1)
[2016-08-28 07:20] VITALS: BP 136/59
[2016-08-28 11:44] VITALS: BP 149/59
[2016-08-28 16:10] VITALS: BP 129/53
[2016-08-28 19:24] VITALS: BP 142/64
[2016-08-29 03:21] VITALS: BP 132/63
[2016-08-29 05:49] LABS: ALBUMIN 2.2 g/dL (3.4-5.0); CALCIUM 8.4 mg/dL (8.5-10.1); CREATININE 1.4 mg/dL (0.7-1.3); PHOSPHORUS 3.4 mg/dL (2.5-4.9); POTASSIUM 3.6 mmol/L (3.5-5.1)
[2016-08-29 11:25] VITALS: BP 142/58
[2016-08-29 19:21] VITALS: BP 148/60
[2016-08-30 03:25] VITALS: BP 141/63
[2016-08-30 06:06] LABS: ALBUMIN 2.3 g/dL (3.4-5.0); CALCIUM 8.6 mg/dL (8.5-10.1); CREATININE 1.3 mg/dL (0.7-1.3); PHOSPHORUS 3.5 mg/dL (2.5-4.9); POTASSIUM 3.5 mmol/L (3.5-5.1)
[2016-08-30 08:20] VITALS: BP 152/74
[2016-08-30 11:13] VITALS: BP 135/67
[2016-08-30 16:27] VITALS: BP 145/67
[2016-08-30 19:29] VITALS: BP 141/59
[2016-08-31 00:10] VITALS: BP 143/59
[2016-08-31 03:37] VITALS: BP 138/56
[2016-08-31 04:41] LABS: CALCIUM 8.7 mg/dL (8.5-10.1); CREATININE 1.3 mg/dL (0.7-1.3); POTASSIUM 3.6 mmol/L (3.5-5.1)
[2016-08-31 05:04] LABS: HEMATOCRIT 31.1 % (42.0-52.0); HEMOGLOBIN 10.6 gm/dL (14.0-18.0); MCH 29.8 pg (26.0-34.0); MCV 87.8 fL (80.0-100.0); RBC 3.54 mil/uL (4.50-6.00); WBC 6.1 thou/uL (4.0-11.0)
[2016-08-31 07:15] VITALS: BP 143/58
[2016-08-31 11:10] VITALS: BP 136/79
[2016-08-31 14:10] VITALS: BP 155/67
[2016-08-31 19:20] VITALS: BP 146/61
[2016-09-01 00:03] VITALS: BP 151/58
[2016-09-01 03:07] VITALS: BP 147/61
[2016-09-01 04:22] LABS: HEMATOCRIT 31.8 % (42.0-52.0); MCH 30.3 pg (26.0-34.0); MCHC 34.5 g/dL (28.0-37.0); MCV 87.8 fL (80.0-100.0); RBC 3.62 mil/uL (4.50-6.00)
[2016-09-01 04:28] LABS: CALCIUM 8.7 mg/dL (8.5-10.1); CREATININE 1.4 mg/dL (0.7-1.3); POTASSIUM 3.7 mmol/L (3.5-5.1)
[2016-09-01 07:17] VITALS: BP 153/63
[2016-09-01 11:13] VITALS: BP 137/60
[2016-09-01 16:33] VITALS: BP 133/56
[2016-09-01 19:12] VITALS: BP 152/77
[2016-09-02 03:01] VITALS: BP 149/72
[2016-09-02 07:59] VITALS: BP 145/70
[2016-09-02 11:15] VITALS: BP 150/68
[2016-09-02 15:14] VITALS: BP 155/73
[2016-09-02 19:20] VITALS: BP 148/73
[2016-09-03 04:09] VITALS: BP 152/73
[2016-09-03 07:56] VITALS: BP 143/64; BP 150/68
[2016-09-03] MEDS ORDERED: PEPCID20 MG PER TUBE (11:45)
[2016-09-03] MEDS ORDERED: DUONEB 2.5-0.5 M3 ML INH ×2 (11:45)
[2016-09-03] MEDS ORDERED: VITAMIN B-12500 MCG PO (11:45)
[2016-09-03] MEDS ORDERED: TYLENOL325 MG PO (11:45)
[2016-09-03] MEDS ORDERED: UREA85 GM TOP (11:45)
[2016-09-03] MEDS ORDERED: NORVASC10 MG PER TUBE (11:45)
[2016-09-03] MEDS ORDERED: LOPRESSOR50 PER TUBE (11:45)
[2016-09-03] MEDS ORDERED: LANTUS100 UNIT/M SUBQ (11:45)
[2016-09-03 12:18] VITALS: BP 128/61
== END 2016-09-03 18:00 | DRG 242 ==
LOC: ER 14:33 → ICU 17:00 → EROBS 17:00 → ICU 18:27 → 2N 08-24 15:07
PROVIDERS: Emergency Medicine; Family Medicine; Hospitalist; Internal Medicine Hematology & Oncology; Internal Medicine Infectious Disease; Internal Medicine Nephrology; Internal Medicine Pulmonary Disease; Psychiatry & Neurology Neurology; Surgery
PROC: 0BH17EZ Insertion of Endotracheal Airway into Trachea, Via Natural or Artificial Opening (ICD-10-PCS; principal; 2016-08-07)
PROC: 5A1955Z Respiratory Ventilation, Greater than 96 Consecutive Hours (ICD-10-PCS; principal; 2016-08-07)
PROC: B548ZZA Ultrasonography of Superior Vena Cava, Guidance (ICD-10-PCS; 2016-08-08)
PROC: 02HV33Z Insertion of Infusion Device into Superior Vena Cava, Percutaneous Approach (ICD-10-PCS; 2016-08-08)
PROC: B2111ZZ Fluoroscopy of Multiple Coronary Arteries using Low Osmolar Contrast (ICD-10-PCS; 2016-08-09)
PROC: B4181ZZ Fluoroscopy of Bilateral Renal Arteries using Low Osmolar Contrast (ICD-10-PCS; 2016-08-09)
PROC: 4A023N7 Measurement of Cardiac Sampling and Pressure, Left Heart, Percutaneous Approach (ICD-10-PCS; 2016-08-09)
PROC: 5A1223Z Performance of Cardiac Pacing, Continuous (ICD-10-PCS; 2016-08-09)
PROC: B2151ZZ Fluoroscopy of Left Heart using Low Osmolar Contrast (ICD-10-PCS; 2016-08-09)
PROC: 0JBQ0ZZ Excision of Right Foot Subcutaneous Tissue and Fascia, Open Approach (ICD-10-PCS; 2016-08-12)
PROC: 02H63JZ Insertion of Pacemaker Lead into Right Atrium, Percutaneous Approach (ICD-10-PCS; 2016-08-13)
PROC: 02HK3JZ Insertion of Pacemaker Lead into Right Ventricle, Percutaneous Approach (ICD-10-PCS; 2016-08-13)
PROC: 02PA3MZ Removal of Cardiac Lead from Heart, Percutaneous Approach (ICD-10-PCS; 2016-08-13)
PROC: 0JH606Z Insertion of Pacemaker, Dual Chamber into Chest Subcutaneous Tissue and Fascia, Open Approach (ICD-10-PCS; 2016-08-13)
PROC: 30233R1 Transfusion of Nonautologous Platelets into Peripheral Vein, Percutaneous Approach (ICD-10-PCS; 2016-08-13)
PROC: 30253R1 (ICD-10-PCS; 2016-08-13)
PROC: 5A09357 Assistance with Respiratory Ventilation, Less than 24 Consecutive Hours, Continuous Positive Airway Pressure (ICD-10-PCS; 2016-08-16)
PROC: 0BH17EZ Insertion of Endotracheal Airway into Trachea, Via Natural or Artificial Opening (ICD-10-PCS; 2016-08-18)
PROC: 0BJ08ZZ Inspection of Tracheobronchial Tree, Via Natural or Artificial Opening Endoscopic (ICD-10-PCS; 2016-08-19)
PROC: 0DH68UZ Insertion of Feeding Device into Stomach, Via Natural or Artificial Opening Endoscopic (ICD-10-PCS; 2016-08-30)
DX: I44.2 Atrioventricular block, complete (principal); G92 Toxic encephalopathy; I21.4 Non-ST elevation (NSTEMI) myocardial infarction; J96.21 Acute and chronic respiratory failure with hypoxia; J18.9 Pneumonia, unspecified organism; E43 Unspecified severe protein-calorie malnutrition; I46.2 Cardiac arrest due to underlying cardiac condition; N17.9 Acute kidney failure, unspecified; K80.10 Calculus of gallbladder with chronic cholecystitis without obstruction; J98.11 Atelectasis; L03.115 Cellulitis of right lower limb; M86.8X7 Other osteomyelitis, ankle and foot; L02.611 Cutaneous abscess of right foot; D61.818 Other pancytopenia; L97.412 Non-pressure chronic ulcer of right heel and midfoot with fat layer exposed; E87.0 Hyperosmolality and hypernatremia; E87.2 Acidosis; G72.81 Critical illness myopathy; I49.01 Ventricular fibrillation; R00.0 Tachycardia, unspecified; I25.10 Atherosclerotic heart disease of native coronary artery without angina pectoris; R53.81 Other malaise; R91.8 Other nonspecific abnormal finding of lung field; I99.8 Other disorder of circulatory system; I12.9 Hypertensive chronic kidney disease with stage 1 through stage 4 chronic kidney disease, or unspecified chronic kidney disease; E11.65 Type 2 diabetes mellitus with hyperglycemia; E11.621 Type 2 diabetes mellitus with foot ulcer; N18.9 Chronic kidney disease, unspecified; E11.69 Type 2 diabetes mellitus with other specified complication; E11.22 Type 2 diabetes mellitus with diabetic chronic kidney disease; E11.51 Type 2 diabetes mellitus with diabetic peripheral angiopathy without gangrene; R13.10 Dysphagia, unspecified; E11.40 Type 2 diabetes mellitus with diabetic neuropathy, unspecified; K21.9 Gastro-esophageal reflux disease without esophagitis; I87.2 Venous insufficiency (chronic) (peripheral); R19.7 Diarrhea, unspecified; R50.9 Fever, unspecified; Z86.14 Personal history of Methicillin resistant Staphylococcus aureus infection; Z88.1 Allergy status to other antibiotic agents; Z91.14 Patient's other noncompliance with medication regimen; Z79.899 Other long term (current) drug therapy; Z79.4 Long term (current) use of insulin; Z68.32 Body mass index [BMI] 32.0-32.9, adult; Z63.5 Disruption of family by separation and divorce; Z86.73 Personal history of transient ischemic attack (TIA), and cerebral infarction without residual deficits
CPT/HCPCS: 10078; 10081; 27000; 62110; 62900; 65020; 65043; 85076

== ENCOUNTER 2016-09-11 22:02 | Inpatient (IN) | payer OTHER ==
[~2016-09-11] VITALS: Ht 180.3 cm; Wt 89.4 kg
--- NOTE | ~2016-09-11 | EKG ---
[place] [address] [employer] [place] [address] ELECTROCARDIOGRAM REPORT Name: DEBORA HOWE Room #: 244-P [facility] IN M.R.#: [id number] Admission: 09/11/16 Attend Phys: Jatin Ying Discharge: 09/12/16 Date of : 53 Report #: [id number] THIS REPORT FOR: //name// [facility] ED Test Date: 2016-09-11 Test Time: 22:09:00 Pat Name: DEBORA HOWE Department: Room: 244 Gender: M Osteopathic Resident: gilberto snider : 1955 Requested By: Mary Jane Land Order Number: [id number] MD: Fuad Johnson Measurements Intervals [place] Rate: 95 P: -64 ND: 172 QRS: -60 QRSD: 167 T: 107 QT: 425 QTc: 535 Interpretive Statements Sinus rhythm Left bundle branch block Electronically Signed On 09-12-2016 22:30:44 CDT by Fuad Johnson [email or web address] <ELECTRONICALLY SIGNED> By: Fuad Johnson MD 09/12/162229 08 2209 MD AFSHIN Jose
[~2016-09-11 22:02] MED LIST changes: +DUONEB 2.5-0.5 M3 ML INH; +LANTUS100 UNIT/M SUBQ; +LOPRESSOR50 PER TUBE; +NORVASC10 MG PER TUBE; +PEPCID20 MG PER TUBE; +TYLENOL325 MG PO; +UREA85 GM TOP; +VITAMIN B-12500 MCG PO
[2016-09-11 22:03] VITALS: BP 83/35
[2016-09-11 22:27] LABS: HEMATOCRIT 25.5 % (42.0-52.0); HEMOGLOBIN 8.5 gm/dL (14.0-18.0); MCH 30.8 pg (26.0-34.0); MCHC 33.3 g/dL (28.0-37.0); MCV 92.5 fL (80.0-100.0); PLATELET COUNT 140 thou/uL (150-400); RBC 2.76 mil/uL (4.50-6.00); RDW 16.9 % (10.5-14.5); WBC 8.8 thou/uL (4.0-11.0)
[2016-09-11 22:29] LABS: MANUAL DIFF YES
[2016-09-11 22:36] LABS: URINE BILIRUBIN NEGATIVE (Negative); URINE BLOOD 3+ (Negative); URINE COLOR YELLOW; URINE GLUCOSE-RANDOM* NEGATIVE (Negative); URINE KETONES NEGATIVE (Negative); URINE NITRITE NEGATIVE (Negative); URINE PROTEIN (DIPSTICK) TRACE (Negative); URINE UROBILINOGEN 0.2 E.U./dl (0.2-1.0)
[2016-09-11 22:39] LABS: ABG SAMPLE TYPE ARTERIAL; BE(vivo) -7.5 mmol/L (-2 to +3); HCO3 16.8 mmol/L (22.0-26.0); LACTATE 4.91 mmol/L (0.5-2.0); O2(CT) 12.9 mL/dL (15.0-23.0); O2Hb 95.4 % (92.0-98.0); PCO2 29.4 mmHg (35.0-45.0); STICK SITE R.BRACHIAL; TIDAL VOLUME 550 ml; pH 7.374 (7.360-7.450); sO2 99.8 % (92.0-98.0); tCO2 17.7 mmol/L (24.0-30.0)
[2016-09-11 22:40] LABS: CALCIUM 8.1 mg/dL (8.5-10.1); CREATININE 3.8 mg/dL (0.7-1.3); INR 1.3; POTASSIUM 5.1 mmol/L (3.5-5.1); PROTIME 13.9 Seconds (9.3-11.4)
[2016-09-11 22:45] LABS: ALBUMIN 2.3 g/dL (3.4-5.0); DIRECT BILIRUBIN 0.2 mg/dL (<0.1-0.3); TOTAL BILIRUBIN 0.5 mg/dL (<0.1-1.0); TOTAL PROTEIN 6.5 g/dL (6.4-8.2)
[2016-09-11 22:49] LABS: CASTS None Seen /LPF (None Seen); SQUAMOUS 0-3 Few /LPF (0-3); URINE RBC 3-10 Few /HPF (0-2); URINE WBC 0-5 Rare /HPF (0-5)
[2016-09-11 22:50] LABS: BACTERIA 1-9 Few /HPF (None Seen); CRYSTALS None Seen /LPF (None Seen); YEAST Present (None Seen)
[2016-09-11 23:03] LABS: ABSOLUTE NEUTROPHILS 7.2 thou/uL (1.4-8.2); ANISOCYTOSIS 1+; LARGE PLATELETS OCCASIONAL; MYELOCYTES 1 %; TOTAL CELL COUNT 100
[2016-09-11] MEDS ORDERED: JANUVIA100 MG PER TUBE (23:52)
[2016-09-11] MEDS ORDERED: DIFLUCAN200 MG PO (23:56)
[2016-09-11] MEDS ORDERED: HYDROCODONE-AP1 EAC6 PO (23:58)
[2016-09-12] VITALS (16 sets, daily range): BP systolic 67–125; BP diastolic 32–64
[2016-09-12] MEDS ORDERED: PACERONE 200 M200 M1 PER TUBE
[2016-09-12] MEDS ORDERED: HYDRALAZINE 2525 MG PER TUBE (00:01)
[2016-09-12] MEDS ORDERED: LASIX 20 MG TAB20 MG PER TUBE (00:01)
[2016-09-12 04:49] LABS: HEMOGLOBIN 7.9 gm/dL (14.0-18.0); MCH 29.8 pg (26.0-34.0); MCHC 31.5 g/dL (28.0-37.0); MCV 94.8 fL (80.0-100.0); PLATELET COUNT 136 thou/uL (150-400); RBC 2.64 mil/uL (4.50-6.00); RDW 16.9 % (10.5-14.5); WBC 6.2 thou/uL (4.0-11.0)
[2016-09-12 04:58] LABS: CALCIUM 6.3 mg/dL (8.5-10.1); CREATININE 4.2 mg/dL (0.7-1.3); POTASSIUM 4.3 mmol/L (3.5-5.1)
[2016-09-12 05:00] LABS: MANUAL DIFF YES
[2016-09-12 05:04] LABS: ABG SAMPLE TYPE ARTERIAL; BE(vivo) -14.9 mmol/L (-2 to +3); HCO3 12.7 mmol/L (22.0-26.0); O2(CT) 9.3 mL/dL (15.0-23.0); O2Hb 88.2 % (92.0-98.0); PCO2 37.5 mmHg (35.0-45.0); PO2 77.1 mmHg (80.0-100.0); sO2 91.5 % (92.0-98.0); tCO2 13.9 mmol/L (24.0-30.0)
[2016-09-12 05:05] LABS: LACTATE 5.72 mmol/L (0.5-2.0); STICK SITE L.RADIAL; TIDAL VOLUME 550 ml; pH 7.149 (7.360-7.450)
[2016-09-12 07:18] LABS: ABSOLUTE NEUTROPHILS 4.6 thou/uL (1.4-8.2); METAMYELOCYTES 5 %; MYELOCYTES 1 %; NUCLEATED RBCS 4 /100WBC; TOTAL CELL COUNT 100
== END 2016-09-12 05:46 | DRG 871 ==
LOC: ER 22:02 → EROBS 22:56 → ICU 09-12 00:41
PROVIDERS: Emergency Medicine; Internal Medicine Pulmonary Disease; Nurse Practitioner Acute Care
PROC: 5A1935Z Respiratory Ventilation, Less than 24 Consecutive Hours (ICD-10-PCS; principal; 2016-09-11)
PROC: 5A12012 Performance of Cardiac Output, Single, Manual (ICD-10-PCS; 2016-09-12)
DX: A41.89 Other specified sepsis (principal); R65.21 Severe sepsis with septic shock; J96.00 Acute respiratory failure, unspecified whether with hypoxia or hypercapnia; G92 Toxic encephalopathy; N17.9 Acute kidney failure, unspecified; A04.7 Enterocolitis due to Clostridium difficile; E87.0 Hyperosmolality and hypernatremia; E11.40 Type 2 diabetes mellitus with diabetic neuropathy, unspecified; E11.65 Type 2 diabetes mellitus with hyperglycemia; D64.9 Anemia, unspecified; I11.0 Hypertensive heart disease with heart failure; I50.9 Heart failure, unspecified; Z66 Do not resuscitate; Z79.4 Long term (current) use of insulin; Z88.1 Allergy status to other antibiotic agents; Z86.14 Personal history of Methicillin resistant Staphylococcus aureus infection; Z90.49 Acquired absence of other specified parts of digestive tract; Z79.899 Other long term (current) drug therapy; Z95.0 Presence of cardiac pacemaker